=== PATIENT | male | born 1970 | race Caucasian/White ===

== ENCOUNTER 2019-09-06 09:25 | Observation (INO) | payer OTHER, SELFPAY ==
[2019-09-06] VITALS (29 sets, daily range): BP systolic 117–152; BP diastolic 76–106; PULSE 52–74; RESP 13–25; TEMP 36.6–37; O2SAT 97–100; BMI 31.6
--- NOTE | 2019-09-06 | ECHO_ITS ---
Patient Info Name: Jesus Aldridge Age: 49 years : 1970 Gender: Male Ht: 73 in Wt: 239 lbs BSA: 2.39 m2 HR: 61 bpm BP: 125 / 82 mmHg Heart Rhythm: Sinus Rhythm Technical Quality: Good Exam Date: 09/06/2019 4:12 PM Exam Location: [facility] Pulmonary Exam Room: [facility] Patient Status: Inpatient Admit Date: 09/06/2019 Staff Ordering Physician: Sandeep Gonzalez MD Senior Analyst Developer: Nicolette Victoria RDCS Attending Provider: Monica Morton MD Referring Physician: Lisa HERNANDEZ; Exam Type: CA echo doppler color flow Study Info Indications - chest pain Complete two-dimensional, color flow and Doppler transthoracic echocardiogram is performed. Summary 1. Left ventricular chamber dimension is normal. 2. Left ventricular systolic function is normal, estimated at 60-65%. 3. There is mildly increased left ventricular wall thickness. 4. Left ventricular septal wall motion is normal. 5. The left ventricular diastolic function is normal. 6. There is mild mitral valve regurgitation. 7. There is mild tricuspid valve regurgitation. 8. There is mild pulmonic regurgitation. Left Ventricle Left ventricular chamber dimension is normal. Left ventricular systolic function is normal, estimated at 60-65%. There is mildly increased left ventricular wall thickness. Left ventricular septal wall motion is normal. The left ventricular diastolic function is normal. Right Ventricle Right ventricular chamber dimension is normal. Right ventricular systolic function is normal. Left Atria Left atrial chamber dimension is normal. Right Atria Right atrial chamber dimension is normal. Atrial Septum Intact interatrial septum visualized by color flow imaging. Aortic Valve The aortic valve is trileaflet. There is no aortic valve sclerosis. There is no aortic valve stenosis. There is trace aortic valve regurgitation. Pulmonic Valve The pulmonic valve is normal. There is no pulmonic valve stenosis. There is mild pulmonic regurgitation. Mitral Valve The mitral valve has normal leaflets. There is no mitral valve stenosis. There is mild mitral valve regurgitation. Tricuspid Valve The tricuspid valve leaflets are normal. There is no significant tricuspid valve stenosis. There is mild tricuspid valve regurgitation. No pulmonary hypertension, estimated pulmonary arterial systolic pressure is 31 mmHg. Pericardium/Pleural The pericardium appears normal. There is trivial pericardial effusion. Inferior Vena Cava Normal inferior vena cava with <50% collapse upon inspiration consistent with elevated right atrial pressure, 10 mmHg. Aorta The aortic root size at the sinus of Valsalva is normal. The prox ascending aorta size is normal. Left Ventricular Outflow Tract Name Value Normal LVOT 2D LVOT Diameter 2.1 cm LVOT Doppler LVOT Peak Gradient 6 mmHg LVOT Mean Gradient 3 mmHg LVOT VTI 24 cm LVOT VTI/AV VTI Ratio 0.9 LVOT Stroke Volume
--- NOTE | ~2019-09-06 | XR_ITS ---
EXAMINATION: XR chest 2V EXAM DATE: 09/06/2019 10:07 INDICATION: Midline chest pain. TECHNIQUE: Frontal and lateral projections of the chest obtained and reviewed. Comparison is made to prior examination from 01/15/2018. FINDINGS: The lungs are clear. There are no pleural effusions. The cardiomediastinal silhouette is within normal limits. There is no pneumothorax suspected. The bones and soft tissues are unremarkab le. IMPRESSION: No acute cardiopulmonary findings. Reviewed, dictated and finalized at location A.
--- NOTE | 2019-09-06 09:32 | ED.CHESTPAIN ---
HPI - Chest Pain General Chief Complaint: Chest Pain Stated Complaint: Chest Tightness Time Seen by Provider: 09/06/19 09:30 Source: patient Mode of arrival: ambulatory Limitations: no limitations History of Present Illness HPI narrative: A 49 y/o male presents to the ED with c/o CP that is a 5/10 in severity in the ED. Pt states that the CP started yesterday after he finished lifting heavy boxes at work and has been intermittent since. The CP is described as a tightness and is aggravated with deep breaths. He has a PMHx of TN and STENT, but states that this CP feels different. Pt adds that with his previous TN he had right arm numbness and the chest pain was much more severe. He denies any increased pain with movement. Pt reports SOB and nonproductive cough, but denies fever, chills, sweats, jaw pain, back pain, and N/V. He adds that the nonproductive cough started [address] 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 Pt did not take any pain medication prior to his ED visit. MD complaint: chest pain Pertinent past history: prior TN Onset (ago): day(s) (1) Timing of current episode: episodic Onset: during exertion Pain scale (0-10): 5 Quality: tightness Exacerbating factors: inspiration Associated symptoms: dyspnea and cough (Nonproductive) Treatment prior to arrival: none Related Data Home Medications Medication Instructions Recorded Confirmed aspirin 81 mg tablet,delayed 81 mg PO DAILY 07/12/19 release atorvastatin 80 mg tablet 80 mg PO DAILY 07/12/19 clopidogrel 75 mg tablet 75 mg PO DAILY 07/12/19 metoprolol tartrate 25 mg tablet 25 mg PO DAILY 07/12/19 varenicline 1 mg tablet 1 mg PO BID 07/12/19 ezetimibe mg 09/06/19 lisinopril 20 mg PO DAILY 09/06/19 09/06/19 Allergies Allergy/AdvReac Type Severity Reaction Status Date / Time No Known Allergies Allergy Unverified 09/06/19 10:39 Review of Systems Review of Systems: All systems reviewed & are unremarkable except as noted in HPI and below Constitutional: Constitutional: Denies chills and Denies fever(s) Cardiovascular: Cardiovascular: Reports chest pain and Denies other (Sweats) Respiratory: Respiratory: Reports cough (Nonproductive) and Reports dyspnea Gastrointestinal: Gastrointestinal: Denies nausea and Denies vomiting Musculoskeletal: Musculoskeletal: Denies back pain and Denies other (Jaw pain) Neurologic: Denies numbness PMFSH Past Medical History Medical History (Updated 09/06/19 @ 13:59 by Yumi Jones MD) Arthritis Coronary artery disease Heart attack Hyperlipidemia Umbilical hernia Surgical History Surgical History (Updated 09/06/19 @ 09:36 by Juliane Lim) H/O elbow surgery Left History of intravascular stent placement History of tonsillectomy Family History Family History Father Family history of coronary artery disease Grandparent Family history of coronary artery disease Father Acute myocardial infarction Social History Social History (Updated 09/06/19 @ 09:35 by Juliane Lim) Smoking packs per day: 0.5 Smoking cigarettes per day: 10.0 Smoking status: Current every day smoker Tobacco type: cigarettes Alcohol intake: current Gender identity (if verbalized by the patient): Male Exam Const: General: cooperative, no acute distress and alert Nutritional Appearance: obese Orientation/consciousness: patient oriented x3 Limitations: no limitations HENMT: Mouth: Yes lip normal and Yes moist mucous membranes Resp: Effort & Inspection: normal respiratory effort Auscultation: clear to auscultation bilaterally Cardio: Rate: regular rate Rhythm: regular rhythm GI: GI Palp: Yes Soft to palpation and No Tenderness to palpation present (GI) Auscultation: normal bowel sounds Skin: General skin exam: normal color Neuro: General: patient oriented x3 Cognition (Neuro): normal cognition Speech: normal speech Extrem: General: normal to inspectio
--- NOTE | 2019-09-06 09:38 | ECG_ITS ---
Measurements Intervals [place] Rate: 70 P: 49 MN: 164 QRS: 70 QRSD: 93 T: 19 QT: 359 QTc: 388 Interpretive Statements SINUS RHYTHM BASELINE ARTIFACT- I, II, III, AVR, AVL, AVF, V1, V3 BORDERLINE ECG Electronically Signed On 09-06-2019 10:04:06 CDT by Zen Harper D.O.
[2019-09-06 09:46] LABS: Basophils Absolute Auto 0.1 K/mm3 (0.0-0.1); Basophils Percent Auto 0.7 % (0.2-1.2); Eosinophils Absolute Auto 0.1 K/mm3 (0-0.3); Eosinophils Percent Auto 1.9 % (0-4.4); Hemoglobin 14.2 g/dL (14.0-18.0); Immature Granulocyte Absolute 0.01 K/mm3 (0.00-0.031); Immature Granulocyte Percent A 0.1 % (0-0.5); Lymphocytes Absolute Auto 2.22 K/mm3 (0.9-3.2); Lymphocytes Percent Auto 32.7 % (18.3-44.2); Mean Corpuscular HGB Conc 33.8 g/dl (32-36); Mean Corpuscular Hemoglobin 28.5 pg (26-34); Mean Corpuscular Volume 84.2 fl (80-100); Mean Platelet Volume 9.6 fl (7.4-10.4); Monocytes Absolute Auto 0.5 K/mm3 (0.1-0.6); Monocytes Percent Auto 6.6 % (2.6-8.5); Neutrophils Absolute Auto 3.9 K/mm3 (1.3-6.7); Platelet Count Result 229 k/mm3 (150-375); Red Blood Count 4.99 M/mm3 (4.6-6.20); Red Cell Distribution Width 13.2 % (11.5-14.5); White Blood Count 6.8 K/mm3 (4.5-10.0)
[2019-09-06 09:59] LABS: INR 0.9; Prothrombin Time 11.9 Seconds (11.1-14.7)
[2019-09-06 10:00] LABS: Partial Thromboplastin Time 23.9 SECONDS (22.3-36.8)
[2019-09-06 10:03] LABS: D Dimer 0.27 ug/mL (<0.48)
[2019-09-06 10:12] LABS: NT Pro B Type Natriuretic Pept 71 PG/ML (5-100); Troponin I < 0.012 ng/mL (0.000-0.034)
[2019-09-06 10:13] LABS: Alanine Aminotransferase 31 U/L (4-50); Alkaline Phosphatase 67 U/L (38-126); Aspartate Amino Transferase 30 U/L (17-59); Bilirubin,Total 0.5 mg/dL (0.2-1.3); Blood Urea Nitrogen 14 mg/dL (9-20); Calcium 8.9 mg/dL (8.4-10.2); Carbon Dioxide 24 mmol/L (22-30); Chloride 107 mmol/L (98-107); Estimated CRCL calculation 169 ml/min; Estimated Glomerular Filt Rate > 60; Glucose 144 mg/dL (75-110); Sodium 136 mmol/L (137-145)
[2019-09-06] MEDS: NITROGLYCERIN SL 0.4 MG TABLET SUBLINGUAL (10:32)
[2019-09-06] MEDS: ASPIRIN 81 MG CHEWABLE TABLET 324 MG PO (10:32)
--- NOTE | 2019-09-06 10:32 | PC.NURSE ---
Pt given NTG SL for cp 08/28 at present. VSS.
--- NOTE | 2019-09-06 11:59 | PC.NURSE ---
Pt ambulatory to bathroom. Denies return of chest pain
[2019-09-06 13:29] LABS: Troponin I < 0.012 ng/mL (0.000-0.034)
--- NOTE | 2019-09-06 14:06 | PM.IMHP ---
H&P: HPI History of Present Illness Chief complaint: chest pain Narrative: Jesus Aldridge is a 49 year old male who has had a past medical history of having a non STEMI back on January 15, 2018 patient has 1 cardiac stent. 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 He has been doing some heavy lifting the last 24 hours. He typically lifts heavy items but he has been doing on the lifting the last 24 hours biopsy self. He said about 2 days ago he started to have some discomfort but today it got worse. It feels better when he relaxes. He has some chest pain on his upper chest. It hurts worse when he takes deep breaths. He is typically on an aspirin and he has taken all of his routine medication. He sees his call out operator Dr. Reyez annually. And he said he recently got a checkup and everything checked out fine. Patient's pain does not radiate to his arm neck or back. No fever or chills. Troponins are negative and EKG is within normal limits. Cardiology has been consulted. Date of service 09/06/2019 Review of Systems Review of Systems: All systems reviewed & are unremarkable except as noted in HPI and below Constitutional: Constitutional: Reports as per HPI and Reports no additional constitutional complaints Eyes: Eyes: Reports as per HPI and Reports no additional eye complaints ENT: Reports system reviewed and no additional complaints, except as documented and Reports Normal hearing present Cardiovascular: Cardiovascular: Reports no additional cardiovascular complaints Respiratory: Respiratory: Reports no additional respiratory complaints and Reports no additional respiratory complaints Gastrointestinal: Gastrointestinal: Reports as per HPI and Reports no additional gastrointestinal complaints Musculoskeletal: Musculoskeletal: Reports no additional musculoskeletal complaints Integumentary/Breasts: Skin/Breast: Reports system reviewed and no additional complaints, except as docu and Reports as per HPI Neurologic: Reports system reviewed and no additional complaints, except as documented, Reports as per HPI and Reports Normal hearing present Psychiatric: Psychiatric: Reports no additional psychiatric complaints and Reports as per HPI Endocrine: Endocrine: Reports no additional endocrine complaints Hematologic/Lymphatic: Hematologic/Lymphatic: Reports no additional hematologic/lymphatic complaints Allergic/Immunologic: Allergic/Immunologic: Reports no additional allergic/immunologic complaints [facility] Past Medical History Medical History (Updated 09/06/19 @ 14:17 by Dominique Rivera NP) Arthritis Coronary artery disease Heart attack HTN (hypertension), malignant Hyperlipidemia Umbilical hernia Surgical History Surgical History (Updated 09/06/19 @ 09:36 by Juliane Lim) H/O elbow surgery Left History of intravascular stent placement History of tonsillectomy Family History Family History (Updated 09/06/19 @ 14:15 by Dominique Rivera NP) Father Family history of coronary artery disease Grandparent Family history of coronary artery disease Father Acute myocardial infarction Mother Heart disease She has about 7 stents Social History Social History (Updated 09/06/19 @ 14:22 by Dominique Rivera NP) Social History: The patient is to evin who is his durable power contracts attorney for healthcare. Patient tires to be a full code. 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 He is sounds smoking half a pack a cigarettes a day from 2 packs of cigarettes a day. He said he smoked for a very long time and cannot remember how old he was when he started. He denies any alcohol or illicit drugs. He has no biological children. But he has step children. Smoking packs per day: 0.5 Smoking cigarettes per day: 10.0 Smoking status: Current every day smoker Tobacco type: cigarettes Alcohol intake: current Substance use: never Gender identity (if verbalized by the patient):
--- NOTE | 2019-09-06 14:24 | PC.NURSE ---
Attempt to call report to floor, Elsa unable to take at present.
--- NOTE | 2019-09-06 15:13 | ADMGEN ---
This patient, Jesus Aldridge, was admitted to IMU Room 205-01. Patient/family oriented to hospital policies and general routines including ID bracelet, bed and alarms, visiting hours, pain management, procedures, bathroom and other care routines, personal items, smoking policy, room service/diet, and visiting hours. Valuables list has been completed. Information on how to activate the Rapid Response Team has been discussed. Patient/Family are encouraged to report perceived risks to care and to ask questions if they do not understand what they are told or what they should do.
--- NOTE | 2019-09-06 15:46 | PM.CNCAR ---
Assessment and Plan Assessment and plan (1) Chest pain: Code(s): R07.9 - Chest pain, unspecified Status: Acute Assessment and Plan: It is reproducible by palpation. Also likely musculoskeletal. Reportedly did get improvement with nitroglycerin but he also received aspirin around the same time as well as the fact that he has not been breathing heavily since he has been lying in bed since admission. He does not feel like his previous IN pain. Will continue to complete rule out myocardial infarction at this point since he is already on the floor. Will check a 2D echocardiogram with Doppler. Nitroglycerin 0.4 mg p.r.n. chest pain while here in the hospital. I will also give him a dose of acetaminophen 500 mg p.o. x1 now and then q.6 hours p.r.n. Discharge home tomorrow morning (2) Essential hypertension: Code(s): I10 - Essential (primary) hypertension Status: Acute Assessment and Plan: At goal (3) Coronary artery disease: Code(s): I25.10 - Atherosclerotic heart disease of [place] coronary artery without angina pectoris Status: Chronic Assessment and Plan: Previous PCI to the LAD. Continue aspirin, clopidogrel, metoprolol and Zetia. Also continue high-dose statin (4) Hyperlipidemia: Code(s): E78.5 - Hyperlipidemia, unspecified Status: Chronic Assessment and Plan: At goal History of Present Illness History of Present Illness Consult date/time: 09/06/19 15:46 Requesting physician: Yumi Jones MD Consult reason: chest pain Reason For Visit: chest pain Narrative: Date of service 09/06/2019: History: patient is a 49-year-old male who has history coronary disease or non ST-elevation myocardial infarction with a ANIYA to the proximal LAD in 2018. He is a patient Dr. Perera who was recently seen in the office and was thought to be doing well at that time. Cholesterol is well controlled. He is an active man who has been working more [employer] jobs at his place of employment. Yesterday he was lifting heavy objects and as the day went on he developed more chest pain. Chest pain was worsened whenever she would take a big breath in. He described as a pain across his anterior chest without radiation. He did not have any associated shortness of breath, nausea or diaphoresis. It only occurs whenever he took a big breath in. It is not exertional tightness such as with walking around and did not last for several minutes at a time. It did not feel like his previous myocardial infarction pain. He has had no recent syncope, presyncope, paroxysmal nocturnal dyspnea, orthopnea, edema or palpitations. In the emergency department he was given nitroglycerin which did seem to ease the pleuritic aspect of his symptoms but he also has been lying in bed and also received aspirin around the same time. Review of Systems Review of Systems: All systems reviewed & are unremarkable except as noted in HPI and below Constitutional: Constitutional: Denies weakness Eyes: Eyes: Denies blurry vision ENT: Denies tinnitus Cardiovascular: Cardiovascular: Reports chest pain Respiratory: Respiratory: Denies dyspnea Gastrointestinal: Gastrointestinal: Denies abdominal pain Genitourinary: Genitourinary: Denies dysuria Musculoskeletal: Musculoskeletal: Denies back pain Integumentary/Breasts: Skin/Breast: Denies dry skin Neurologic: Denies headache(s) Psychiatric: Psychiatric: Denies anxiety Endocrine: Endocrine: Denies fatigue Hematologic/Lymphatic: Hematologic/Lymphatic: Denies easy bleeding Allergic/Immunologic: Allergic/Immunologic: Denies GI upset with certain foods PMFSH Past Medical History Medical History Arthritis Coronary artery disease Heart attack HTN (hypertension), malignant Hyperlipidemia Umbilical hernia Surgical History Surgical History (Reviewed 09/06/19 @ 15:51 by Sandeep Moody
[2019-09-06 16:25] LABS: Troponin I < 0.012 ng/mL (0.000-0.034)
[2019-09-06] MEDS: VARENICLINE 1 MG TABLET PO (18:00)
[2019-09-06] MEDS: EZETIMIBE 10 MG TABLET PO (22:27)
[2019-09-06] MEDS: ATORVASTATIN 40 MG TABLET 80 MG PO (22:28)
[2019-09-06] MEDS: METOPROLOL TARTRATE 12.5 MG TABLET PO (22:28)
[2019-09-07] VITALS (7 sets, daily range): BP systolic 116–123; BP diastolic 67–80; PULSE 55–79; RESP 18; TEMP 36.2–36.4; O2SAT 98–99
[2019-09-07 05:16] LABS: Basophils Absolute Auto 0.1 K/mm3 (0.0-0.1); Basophils Percent Auto 0.6 % (0.2-1.2); Eosinophils Absolute Auto 0.1 K/mm3 (0-0.3); Eosinophils Percent Auto 1.6 % (0-4.4); Hemoglobin 14.3 g/dL (14.0-18.0); Immature Granulocyte Absolute 0.02 K/mm3 (0.00-0.031); Immature Granulocyte Percent A 0.2 % (0-0.5); Lymphocytes Absolute Auto 2.71 K/mm3 (0.9-3.2); Mean Corpuscular Hemoglobin 28.7 pg (26-34); Mean Corpuscular Volume 84.2 fl (80-100); Mean Platelet Volume 9.8 fl (7.4-10.4); Monocytes Absolute Auto 0.6 K/mm3 (0.1-0.6); Monocytes Percent Auto 6.7 % (2.6-8.5); Neutrophils Absolute Auto 4.8 K/mm3 (1.3-6.7); Neutrophils Percent Auto 57.9 % (45.5-73.1); Platelet Count Result 237 k/mm3 (150-375); Red Blood Count 4.99 M/mm3 (4.6-6.20); Red Cell Distribution Width 13.2 % (11.5-14.5); White Blood Count 8.2 K/mm3 (4.5-10.0)
[2019-09-07 05:26] LABS: Alanine Aminotransferase 29 U/L (4-50); Albumin Level 3.7 g/dL (3.5-5.1); Alkaline Phosphatase 81 U/L (38-126); Aspartate Amino Transferase 22 U/L (17-59); Bilirubin,Total 0.4 mg/dL (0.2-1.3); Blood Urea Nitrogen 9 mg/dL (9-20); Calcium 8.6 mg/dL (8.4-10.2); Carbon Dioxide 25 mmol/L (22-30); Chloride 105 mmol/L (98-107); Estimated CRCL calculation 144 ml/min; Estimated Glomerular Filt Rate > 60; Glucose 100 mg/dL (75-110); Magnesium 1.9 mg/dL (1.6-2.3); Potassium 3.6 mmol/L (3.4-5.0); Sodium 138 mmol/L (137-145)
[2019-09-07] MEDS: lisinopriL 20 MG TABLET PO (09:37)
[2019-09-07] MEDS: ASPIRIN 81 MG ENTERIC TABLET PO (09:37)
[2019-09-07] MEDS: CLOPIDOGREL BISULFATE 75 MG TABLET PO (09:38)
[2019-09-07] MEDS: VARENICLINE 1 MG TABLET PO (09:38)
[2019-09-07] MEDS: METOPROLOL TARTRATE 12.5 MG TABLET PO (09:38)
--- NOTE | 2019-09-07 10:04 | PM.PNCARD ---
Progress Note: A&P Assessment and Plan (1) Chest pain: Qualifiers: Chest pain type: other chest pain Qualified Code(s): R07.89 - Other chest pain Code(s): R07.9 - Chest pain, unspecified Status: Acute Assessment and Plan: Pain is improved. Still reproducible on palpation to the chest wall. Discussed the type of work that he does and how much lifting he was required to do. Will limit him lifting by himself at 30 lb. Return to work on Wednesday, September 11, 2019. ECHO 09/06/2019: 1. Left ventricular chamber dimension is normal. 2. Left ventricular systolic function is normal, estimated at 60-65%. 3. There is mildly increased left ventricular wall thickness. 4. Left ventricular septal wall motion is normal. 5. The left ventricular diastolic function is normal. 6. There is mild mitral valve regurgitation. 7. There is mild tricuspid valve regurgitation. 8. There is mild pulmonic regurgitation. (2) Essential hypertension: Code(s): I10 - Essential (primary) hypertension Status: Acute Assessment and Plan: At goal (3) Coronary artery disease: Qualifiers: Coronary Disease-Associated Artery/Lesion type: [place] artery [place] vs. transplanted heart: [place] heart Associated angina: without angina Qualified Code(s): I25.10 - Atherosclerotic heart disease of [place] coronary artery without angina pectoris Code(s): I25.10 - Atherosclerotic heart disease of [place] coronary artery without angina pectoris Status: Chronic Assessment and Plan: Previous PCI to the LAD. Continue aspirin, clopidogrel, metoprolol and Zetia. Also continue high-dose statin (4) Hyperlipidemia: Qualifiers: Hyperlipidemia type: mixed hyperlipidemia Qualified Code(s): E78.2 - Mixed hyperlipidemia Code(s): E78.5 - Hyperlipidemia, unspecified Status: Chronic Assessment and Plan: At goal Additional Plan Smoking cessation again discussed. He is down to 1/2 pack per day. OK to discharge from cardiac standpoint See discharge instructions. Plan discussed with Dr. Gonzalez [id number] 09/07/2019 Time Spent With Patient Time with patient: less than 15 minutes Subjective Date/time seen: 09/07/19 10:04 Interval history: Follow-up for: Chest pain, coronary artery disease, tobacco use Date of service: 09/07/2019 Subjective: Pain is much better. Still hurts when takes deep breath. Pain is unlike his and might discomfort. Denied shortness of breath, lightheadedness or palpitations. Review of Systems Constitutional: Constitutional: Denies fatigue and Denies weakness Eyes: Eyes: Denies blurry vision ENT: Denies epistaxis Cardiovascular: Cardiovascular: Reports chest pain (Musculoskeletal), Denies lightheadedness, Denies palpitations and Denies dyspnea Respiratory: Respiratory: Denies dyspnea Gastrointestinal: Gastrointestinal: Denies abdominal pain Genitourinary: Genitourinary: Denies hematuria Integumentary/Breasts: Skin/Breast: Denies unusual bruising Neurologic: Denies headache(s) and Denies numbness Psychiatric: Psychiatric: Denies anxiety Exam Narrative: Exam Narrative: Alert and oriented Const: General: comfortable HENMT: General nose exam: nares abnormal Eyes: Sclera: sclerae normal Neck: Neck: normal visual inspection and no JVD Chest: Other: Reproducible chest wall pain to palpation Resp: Auscultation: clear to auscultation bilaterally Cardio: Jugular venous distension: no JVD Rate: regular rate Rhythm: regular rhythm Heart sounds: no murmurs Peripheral pulses: Peripheral pulses 2+ throughout GI: Inspection: normal to inspection GI Palp: Yes Soft to palpation Auscultation: normal bowel sounds Skin: General skin exam: normal color Neuro: Speech: normal speech Motor exam (neuro): Normal motor muscle tone present throug
--- NOTE | 2019-09-07 11:19 | PM.IMPN ---
Progress Note: A&P Assessment and Plan (1) Chest pain: Qualifiers: Chest pain type: other chest pain Qualified Code(s): R07.89 - Other chest pain Code(s): R07.9 - Chest pain, unspecified Status: Acute Assessment and Plan: Cardiology consulted and appreciate input. Does appear to be musculoskeletal at this time. Echocardiogram with EF 60-65%. Serial troponin levels negative. No EKG changes. Telemetry reviewed on 09/07/2019 with sinus rhythm. Will discharge home today. (2) Hypertension: Qualifiers: Hypertension type: essential hypertension Qualified Code(s): I10 - Essential (primary) hypertension Code(s): I10 - Essential (primary) hypertension Status: Acute Assessment and Plan: Blood pressure reviewed on 09/07/2019 and stable. Continue metoprolol and lisinopril. (3) Coronary artery disease: Qualifiers: Coronary Disease-Associated Artery/Lesion type: [place] artery [place] vs. transplanted heart: [place] heart Associated angina: without angina Qualified Code(s): I25.10 - Atherosclerotic heart disease of [place] coronary artery without angina pectoris Code(s): I25.10 - Atherosclerotic heart disease of [place] coronary artery without angina pectoris Status: Chronic Assessment and Plan: No acute issue. Continue ASA, Plavix and metoprolol. (4) Hyperlipidemia: Qualifiers: Hyperlipidemia type: mixed hyperlipidemia Qualified Code(s): E78.2 - Mixed hyperlipidemia Code(s): E78.5 - Hyperlipidemia, unspecified Status: Chronic Assessment and Plan: Continue Zetia and atorvastatin. (5) DVT prophylaxis: Code(s): Z29.9 - Encounter for prophylactic measures, unspecified Status: Acute Assessment and Plan: SCDs. Time Spent With Patient Time with patient: 15 - 25 minutes Subjective Date/time seen: 09/07/19 11:19 Interval history: Date of Service: 09/07/2019. Admitted with atypical chest pain. Occasional pain in chest but improved. No shortness of breath. No abdominal pain. No headache or dizziness. Review of Systems Review of Systems: Narrative: Feeling better. Constitutional: Constitutional: Denies chills and Denies fever(s) ENT: Denies nasal congestion and Denies nasal discharge Cardiovascular: Cardiovascular: Denies chest pain Respiratory: Respiratory: Denies dyspnea Gastrointestinal: Gastrointestinal: Denies abdominal pain, Denies nausea and Denies vomiting Musculoskeletal: Comments: chest wall pain Integumentary/Breasts: Skin/Breast: Denies rash Neurologic: Denies headache(s) Psychiatric: Psychiatric: Denies anxiety and Denies depression Exam Narrative: Exam Narrative: Awake and alert. Const: General: no acute distress HENMT: Mouth: Yes moist mucous membranes Neck: Neck: supple Thyroid: abnormal thyroid Resp: Auscultation: clear to auscultation bilaterally, no rales and no wheezes Cardio: Rate: regular rate Rhythm: regular rhythm GI: Inspection: non-distended GI Palp: Yes Soft to palpation and No Tenderness to palpation present (GI) Auscultation: normal bowel sounds Skin: General skin exam: no rashes or lesions noted Neuro: Cognition (Neuro): normal cognition Speech: normal speech Extrem: General: no edema Psych: Mental Status: mental status grossly normal Affect: normal affect Objective Data Vital Signs Vital Signs: Vital Signs - 24 hr 09/06/19 11:38 09/06/19 11:46 09/06/19 11:47 Temperature Pulse Rate 62 59 L Respiratory Rate 19 20 19 Blood Pressure 146/106 H Pulse Oximetry 98 99 98 09/06/19 12:00 09/06/19 12:01 09/06/19 12:15 Temperature Pulse Rate 60 58 L 69 Respiratory Rate 25 H 19 22 H Blood Pressure 126/77 121/77 Pulse Oximetry 99 98 100 09/06/19 12:16 09/06/19 12:45 09/06/19 13:00 Temperature Pulse Rate 67 65 64 Respiratory Rate 20 15 15 Blood Pressure 128/105 H Pulse Oximetry 99 99 100
--- NOTE | 2019-09-07 11:24 | PM.DS ---
DS: Diagnosis Admitting Diagnosis Admitting Diagnosis: Chest pain, unspecified Discharge Diagnosis (1) Chest pain: Qualifiers: Chest pain type: other chest pain Qualified Code(s): R07.89 - Other chest pain Code(s): R07.9 - Chest pain, unspecified Status: Acute (2) Hypertension: Qualifiers: Hypertension type: essential hypertension Qualified Code(s): I10 - Essential (primary) hypertension Code(s): I10 - Essential (primary) hypertension Status: Acute (3) Coronary artery disease: Qualifiers: Associated angina: without angina Coronary Disease-Associated Artery/Lesion type: [place] artery [place] vs. transplanted heart: [place] heart Qualified Code(s): I25.10 - Atherosclerotic heart disease of [place] coronary artery without angina pectoris Code(s): I25.10 - Atherosclerotic heart disease of [place] coronary artery without angina pectoris Status: Chronic (4) Hyperlipidemia: Qualifiers: Hyperlipidemia type: mixed hyperlipidemia Qualified Code(s): E78.2 - Mixed hyperlipidemia Code(s): E78.5 - Hyperlipidemia, unspecified Status: Chronic DS: Summary Hospital Course Reason for hospitalization: Chest pain. Hospital Course: Date of Service of Discharge: September 07, 2019. History of Present Illness: Patient is a 49-year-old gentleman with known history of coronary artery disease with stent placement in 2018 to present to the emergency room with pain in the upper chest. 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 He has been doing heavy lifting in the past 24 hours. Patient reports approximately 2 days earlier be and have some discomfort but on the day of presentation pain was worse. Pain is worse when taking a deep breath. He is typically on aspirin and is taking all of his cardiac medications. He does see his financial brokers, Dr. Reyez, annually and was seen recently with no issues noted. No radiation of pain. No shortness of breath. No diaphoresis.. No fever chills. Initial evaluation in the emergency room with negative troponin and EKG normal. Cardiology was consulted with patient placed in observation for further evaluation and treatment. Course in Hospital: Patient was admitted to the IMU where he remained for the duration of his stay. He was seen in consultation by Cardiology. Serial troponin levels were negative x3. No acute changes on EKG. Telemetry was normal. He was continued on all of his home cardiac medications. An echocardiogram was done EF 60-65% and no septal wall motion abnormalities. Patient's blood pressure remained stable during his stay. No chest pressure. No shortness of breath. No other acute issues. With acute coronary issues ruled out, patient was discharged home in stable condition on September 07, 2019. Status at Discharge Cognitive/behavioral status at discharge: Stable. Functional status at discharge: independent ambulation Overall status at discharge: patient is back to baseline Time Spent with Patient Time attestation: Total time spent providing and/or coordinating discharge services: 35 minutes. Exam Narrative: Exam Narrative: Vital Signs Temp Pulse Resp BP Pulse Ox 98.6 F 74 17 152/89 H 100 09/06/19 09:31 09/06/19 09:31 09/06/19 09:31 09/06/19 09:31 09/06/19 09:31 Temp Pulse Resp BP Pulse Ox 97.3 F L 64 18 116/69 98 09/07/19 08:00 09/07/19 09:51 09/07/19 08:00 09/07/19 08:00 09/07/19 08:00 Awake and alert. Const: General: no acute distress HENMT: Mouth: Yes moist mucous membranes Neck: Neck: supple Thyroid: abnormal thyroid Resp: Auscultation: clear to auscultation bilaterally, n
== END 2019-09-07 11:52 | disposition home or self-care (01) ==
LOC: ANHED 13:59 → ANHIMU 14:05
PROVIDERS: Nurse Practitioner; Admitting Provider Hospitalist; Emergency Provider Emergency Medicine; Visit Provider Hospitalist
DX: R07.89 Other chest pain (principal); I10 Essential (primary) hypertension; I25.10 Atherosclerotic heart disease of native coronary artery without angina pectoris; E78.5 Hyperlipidemia, unspecified; I25.2 Old myocardial infarction; R06.02 Shortness of breath; F17.210 Nicotine dependence, cigarettes, uncomplicated; Z79.82 Long term (current) use of aspirin; Z79.899 Other long term (current) drug therapy; Z95.5 Presence of coronary angioplasty implant and graft
CPT/HCPCS: 36415; 71046; 80053; 83735; 83880; 84443; 84484; 85025; 85380; 85610; 85730; 93005; 93306; 99285; A9270; G0378; G0379

== ENCOUNTER 2019-10-23 17:07 | Emergency (ER) | payer OTHER, SELFPAY ==
[2019-10-23 17:12] VITALS: BP 139/86; PULSE 83; RESP 20; TEMP 37.2; O2SAT 99
--- NOTE | 2019-10-23 17:39 | ED.NAVMDI ---
HPI - Nausea/Vomiting/Diarrhea General Chief complaint: Nausea/Vomiting/Diarrhea Stated complaint: food poisoning / nausea Time Seen by Provider: 10/23/19 17:39 Source: patient Mode of arrival: ambulatory Limitations: no limitations History of Present Illness HPI Narrative: Jesus Aldridge is a 49 yo male with PMH ulnar nerve issue, CAD, hypertension, high cholesterol, chronic anticoagulation, GERD, who comes to express care after vomiting after eating very spicy food. States he was unable to go to work due to nausea Related Data Home Medications Medication Instructions Recorded Confirmed aspirin 81 mg tablet,delayed 81 mg PO DAILY 07/12/19 10/23/19 release atorvastatin 80 mg tablet 80 mg PO DAILY 07/12/19 10/23/19 clopidogrel 75 mg tablet 75 mg PO DAILY 07/12/19 10/23/19 metoprolol tartrate 25 mg tablet 12.5 mg PO BID 07/12/19 10/23/19 varenicline 1 mg tablet 1 mg PO BID 07/12/19 10/23/19 ezetimibe 10 mg PO QAM 09/06/19 10/23/19 lisinopril 20 mg PO DAILY 09/06/19 10/23/19 Allergies Allergy/AdvReac Type Severity Reaction Status Date / Time No Known Allergies Allergy Verified 10/23/19 17:37 Review of Systems Review of Systems: Narrative: CONSTITUTIONAL: Denies fever, chills, sweats. EYES: Denies visual changes, redness, discharge. ENT: Denies rhinorrhea, congestion, sore throat, otalgia. CARDIOVASCULAR: Denies chest pain, palpitations, edema. RESPIRATORY: Denies dyspnea, wheezing, cough GASTROINTESTINAL: Denies abdominal pain, has nausea, vomiting x1 , diarrhea. GENITOURINARY: Denies dysuria, hematuria, abnormal discharge SKIN: Denies rash or itching. NEUROLOGIC: Denies numbness, or focal weakness. PSYCHIATRIC: Denies anxiety or depression. [facility] Past Medical History Medical History Arthritis Coronary artery disease Heart attack HTN (hypertension), malignant Hyperlipidemia Umbilical hernia Surgical History Surgical History H/O elbow surgery Left History of intravascular stent placement History of tonsillectomy Family History Family History Father Family history of coronary artery disease Grandparent Family history of coronary artery disease Father Acute myocardial infarction Mother Heart disease She has about 7 stents Social History Social History Social History: The patient is to evin who is his durable power transactional attorney for healthcare. Patient tires to be a full code. 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 He is sounds smoking half a pack a cigarettes a day from 2 packs of cigarettes a day. He said he smoked for a very long time and cannot remember how old he was when he started. He denies any alcohol or illicit drugs. He has no biological children. But he has step children. Smoking packs per day: 0.5 Smoking cigarettes per day: 10.0 Years smoked: 32 Smoking pack-years: 16.00 Smoking status: Current every day smoker Tobacco type: cigarettes Additional smoking assessment comments: smoked 2 packs a day for 25 years. Alcohol intake: former Drinks per week: 10 Substance use: never Gender identity (if verbalized by the patient): Male Spiritual care concerns: No Agree to blood products: No Comments At time of signature, I agree with nursing past medical, surgical, social and family history. There is no relevant family history pertinent to the presenting complaint. Exam Narrative: Exam Narrative: GENERAL: This is a well-nourished, well-developed patient, in mild distress. HEAD: normocephalic, atraumatic. EYES:Sclera clear/white. Vision is grossly intact. EARS: External ears normal, auditory canals clear and without drainage, TMs normal without perforation. Hearing grossly intact. NOSE: External nose n
== END 2019-10-23 17:54 | disposition home or self-care (01) ==
PROVIDERS: Emergency Provider Nurse Practitioner; PCP Internal Medicine
DX: I25.10 Atherosclerotic heart disease of native coronary artery without angina pectoris (principal); R11.14 Bilious vomiting; K21.9 Gastro-esophageal reflux disease without esophagitis; Z79.82 Long term (current) use of aspirin; M19.90 Unspecified osteoarthritis, unspecified site; I25.2 Old myocardial infarction; I10 Essential (primary) hypertension; E78.5 Hyperlipidemia, unspecified; F17.210 Nicotine dependence, cigarettes, uncomplicated; K52.9 Noninfective gastroenteritis and colitis, unspecified
CPT/HCPCS: 99213; G0463

== ENCOUNTER 2020-02-12 05:22 | Emergency (ER) | payer OTHER, SELFPAY ==
--- NOTE | ~2020-02-12 | US_ITS ---
EXAMINATION: US right upper quadrant DATE: 02/12/2020 07:50 INDICATION: Right upper quadrant abdominal pain. TECHNIQUE: Multiple grayscale and Doppler ultrasound images of the abdomen were obtained. COMPARISON: CT abdomen and pelvis 04/11/2019 FINDINGS: The visualized portions of the head, body, and tail of the pancreas are normal. There is di ffuse hepatic steatosis. There is normal flow in main portal vein. The gallbladder is distended and c ontains gallstones. Gallbladder wall thickening is noted. No sonographic Dove sign. The common duct is normal and measures 4 mm. IMPRESSION: 1. Distended gallbladder with gallstones and gallbladder wall thickening, but no sonographic Dove s ign. These findings are consistent with acute cholecystitis. 2. Diffuse hepatic steatosis. Reviewed, dictated and finalized at location B. IMPRESSION: 1. Distended gallbladder with gallstones and gallbladder wall thickening, but n o sonographic Dove sign. These findings are consistent with acute cholecystit is. 2. Diffuse hepatic steatosis.
[2020-02-12 05:22] VITALS: BP 164/89; PULSE 69; RESP 18; TEMP 36.3; O2SAT 97
[2020-02-12 05:43] LABS: Basophils Absolute Auto 0.1 K/mm3 (0.0-0.1); Basophils Percent Auto 0.6 % (0.2-1.2); Eosinophils Absolute Auto 0.1 K/mm3 (0-0.3); Eosinophils Percent Auto 1.3 % (0-4.4); Hematocrit 41.1 % (42.0-52.0); Hemoglobin 14.3 g/dL (14.0-18.0); Immature Granulocyte Absolute 0.03 K/mm3 (0.00-0.031); Immature Granulocyte Percent A 0.4 % (0-0.5); Lymphocytes Percent Auto 31.8 % (18.3-44.2); Mean Corpuscular HGB Conc 34.8 g/dl (32-36); Mean Corpuscular Hemoglobin 29.2 pg (26-34); Mean Corpuscular Volume 83.9 fl (80-100); Mean Platelet Volume 9.3 fl (7.4-10.4); Monocytes Absolute Auto 0.6 K/mm3 (0.1-0.6); Monocytes Percent Auto 8.2 % (2.6-8.5); Neutrophils Absolute Auto 4.5 K/mm3 (1.3-6.7); Neutrophils Percent Auto 57.7 % (45.5-73.1); Platelet Count Result 240 k/mm3 (150-375); Red Cell Distribution Width 12.9 % (11.5-14.5); White Blood Count 7.9 K/mm3 (4.5-10.0)
[2020-02-12 05:55] LABS: Alanine Aminotransferase 54 U/L (4-50); Albumin Level 4.2 g/dL (3.5-5.1); Alkaline Phosphatase 86 U/L (38-126); Anion Gap 8 mmol/L (8-16); Aspartate Amino Transferase 27 U/L (17-59); Bilirubin,Total 0.3 mg/dL (0.2-1.3); Blood Urea Nitrogen 15 mg/dL (9-20); Calcium 8.6 mg/dL (8.4-10.2); Carbon Dioxide 24 mmol/L (22-30); Chloride 104 mmol/L (98-107); Estimated CRCL calculation 129 ml/min; Estimated Glomerular Filt Rate > 60; Glucose 154 mg/dL (75-110); Lipase 477 U/L (23-300); Potassium 3.8 mmol/L (3.4-5.0); Sodium 136 mmol/L (137-145)
[2020-02-12 06:01] LABS: Add Urine Microscopic? NO; Appearance Urine Clear (Clear); Bilirubin Urine Negative (Negative); Blood Urine Negative (Negative); Color Urine Yellow (Yellow); Glucose Urine UA Negative (Negative); Ketones Urine Negative (Negative); Leukocyte Esterase Ur Negative LEU/UL (Negative); Nitrate Urine Negative (Negative); Protein Urine Negative (Negative); Specific Grav Ur 1.024 (1.001-1.035); Urobilinogen Urine Negative mg/dL (<2.0)
--- NOTE | 2020-02-12 06:10 | ED.ABDPAIN ---
HPI - Abdominal Pain General Chief Complaint: Abdominal Pain <Nacho Wetzel MD - Last Filed: 02/12/20 06:14> Stated Complaint: abd pain <Nacho Wetzel MD - Last Filed: 02/12/20 06:14> Time Seen by Provider: 02/12/20 05:31 <Nacho Wetzel MD - Last Filed: 02/12/20 06:14> History of Present Illness HPI narrative: Patient is a 49-year-old male who presents the ER with abdominal pain. Began earlier in the evening. Mainly located in the right upper quadrant of the abdomen. Patient reports she has history of cholelithiasis. No fevers or chills or sweats. He does have some nausea and vomiting. Became sweaty earlier prior to arrival. No alleviating factors is found. He reports he has had this pain intermittently in the past after eating. Reports if he rubs his belly the pain will go away but did not help today. <Nacho Wetzel MD - Last Filed: 02/12/20 06:14> Related Data Home Medications: Home Medications Medication Instructions Recorded Confirmed aspirin 81 mg tablet,delayed 81 mg PO DAILY 07/12/19 10/23/19 release atorvastatin 80 mg tablet 80 mg PO DAILY 07/12/19 10/23/19 clopidogrel 75 mg tablet 75 mg PO DAILY 07/12/19 10/23/19 metoprolol tartrate 25 mg tablet 12.5 mg PO BID 07/12/19 10/23/19 lisinopril 10 mg PO DAILY 09/06/19 10/23/19 <Nacho Wetzel MD - Last Filed: 02/12/20 06:14> Allergies/Adverse Reactions: Allergies Allergy/AdvReac Type Severity Reaction Status Date / Time No Known Allergies Allergy Verified 02/12/20 05:26 <Nacho Wetzel MD - Last Filed: 02/12/20 06:14> Review of Systems Review of Systems: All systems reviewed & are unremarkable except as noted in HPI and below <Nacho Wetzel MD - Last Filed: 02/12/20 06:14> Constitutional: Constitutional: Denies chills, Denies fever(s) and Denies weakness <Nacho Wetzel MD - Last Filed: 02/12/20 06:14> ENT: Denies nasal congestion and Denies sore throat <Nacho Wetzel MD - Last Filed: 02/12/20 06:14> Cardiovascular: Cardiovascular: Denies chest pain and Denies radiating jaw, neck or arm pain <Nacho Wetzel MD - Last Filed: 02/12/20 06:14> Gastrointestinal: Gastrointestinal: Reports abdominal pain, Denies diarrhea, Reports nausea and Reports vomiting <Nacho Wetzel MD - Last Filed: 02/12/20 06:14> [facility] Past Medical History Medical History: Medical History (Updated 02/12/20 @ 09:46 by Pantera Ramsey MD) Arthritis Cholelithiasis Coronary artery disease Heart attack HTN (hypertension), malignant Hyperlipidemia Umbilical hernia <Nacho Wetzel MD - Last Filed: 02/12/20 06:14> Surgical History Surgical History: Surgical History H/O elbow surgery Left History of intravascular stent placement History of tonsillectomy <Nacho Wetzel MD - Last Filed: 02/12/20 06:14> Social History Social History: Social History Social History: The patient is to evin who is his durable power admitted attorneys for healthcare. Patient tires to be a full code. 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 He is sounds smoking half a pack a cigarettes a day from 2 packs of cigarettes a day. He said he smoked for a very long time and cannot remember how old he was when he started. He denies any alcohol or illicit drugs. He has no biological children. But he has step children. Smoking packs per day: 0.5 Smoking cigarettes per day: 10.0 Years smoked: 32 Smoking pack-years: 16.00 Smoking status: Current every day smoker Tobacco type: cigarettes Additional smoking assessment comments: smoked 2 packs a day for 25 years. Alcohol intake: former Drinks per week: 10 Substance use: never Gender identity (if verbalized by the patient): Male Spiritual care concerns: No Agree to blood products: No
[2020-02-12] MEDS: MORPHINE SULFATE 4 MG/ML INJ IV PUSH (06:18)
[2020-02-12 07:11] VITALS: BP 148/92; PULSE 70; RESP 18; O2SAT 96
[2020-02-12] MEDS: ONDANSETRON INJ 4 MG/2 ML VIAL IV PUSH (07:49)
[2020-02-12 10:15] VITALS: BP 141/56; PULSE 70; RESP 12; O2SAT 99
== END 2020-02-12 10:15 | disposition home or self-care (01) ==
PROVIDERS: Emergency Provider Emergency Medicine
DX: K81.0 Acute cholecystitis (principal); M19.90 Unspecified osteoarthritis, unspecified site; I25.10 Atherosclerotic heart disease of native coronary artery without angina pectoris; I25.2 Old myocardial infarction; I10 Essential (primary) hypertension; E78.5 Hyperlipidemia, unspecified; F17.210 Nicotine dependence, cigarettes, uncomplicated; K76.0 Fatty (change of) liver, not elsewhere classified
CPT/HCPCS: 36415; 76705; 80053; 81003; 83690; 85025; 96374; 96375; 99284; J2270; J2405

== ENCOUNTER 2020-03-06 17:10 | Emergency (ER) | payer OTHER, SELFPAY ==
--- NOTE | ~2020-03-06 | XR_ITS ---
EXAMINATION: XR wrist RT min 3V DATE: 03/06/2020 17:29 INDICATION: Right wrist injury and pain. TECHNIQUE: 4 views of right wrist were obtained. COMPARISON: None. FINDINGS: Bone alignment is normal. No fracture. There is a 4 mm lytic lesion in scaphoid, likely a b enign fibrous lesion. There is narrowing of scapholunate joint, which may be a fibrous or [place]il[place] us coalition. IMPRESSION: 1. No fracture. Reviewed, dictated and finalized at location A. IMPRESSION: 1. No fracture.
--- NOTE | 2020-03-06 17:11 | ED.GENADULT ---
HPI - General Adult General Chief complaint: Extremity Injury, Upper Stated complaint: right wrist injury Time Seen by Provider: 03/06/20 17:11 Source: patient Mode of arrival: ambulatory Limitations: no limitations History of Present Illness HPI narrative: 49-year-old male patient presents to [facility] care with complaints of right wrist pain. Patient states that he tripped and fell down about 5 steps off of his porch around noon today. Patient states that he landed on concrete. Patient complaining of right wrist pain at this time. Patient states he has broken his right wrist before when he was younger. Patient states he does not have any numbness and tingling at this time. Denies taking anything for pain prior to arrival. Related Data Home Medications Medication Instructions Recorded Confirmed aspirin 81 mg tablet,delayed 81 mg PO DAILY 07/12/19 03/06/20 release atorvastatin 80 mg tablet 80 mg PO DAILY 07/12/19 03/06/20 clopidogrel 75 mg tablet 75 mg PO DAILY 07/12/19 03/06/20 metoprolol tartrate 25 mg tablet 12.5 mg PO BID 07/12/19 03/06/20 lisinopril 10 mg PO DAILY 09/06/19 03/06/20 Allergies Allergy/AdvReac Type Severity Reaction Status Date / Time No Known Allergies Allergy Verified 03/06/20 17:25 Review of Systems Review of Systems: Narrative: CONSTITUTIONAL: Denies fever, chills, or sweats. EYES: Denies visual changes, redness, or discharge. ENT: Denies rhinorrhea, congestion, sore throat, or otalgia. CARDIOVASCULAR: Denies chest pain, palpitations, or edema. RESPIRATORY: Denies cough or dyspnea. GASTROINTESTINAL: Denies abdominal pain, nausea, vomiting, or diarrhea. GENITOURINARY: Denies dysuria or hematuria. SKIN: Denies rash or itching. MUSCULOSKELETAL: Denies back pain, joint pain, or myalgia. Positive right wrist and hand pain NEUROLOGIC: Denies headache, numbness, or weakness. PSYCHIATRIC: Denies anxiety or depression. [facility] Past Medical History Medical History Arthritis Cholelithiasis Coronary artery disease Heart attack HTN (hypertension), malignant Hyperlipidemia Umbilical hernia Surgical History Surgical History H/O elbow surgery Left History of intravascular stent placement History of tonsillectomy Family History Family History Father Family history of coronary artery disease Grandparent Family history of coronary artery disease Father Acute myocardial infarction Mother Heart disease She has about 7 stents Social History Social History Social History: The patient is to evin who is his durable power tour production supervisor for healthcare. Patient tires to be a full code. 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 He is sounds smoking half a pack a cigarettes a day from 2 packs of cigarettes a day. He said he smoked for a very long time and cannot remember how old he was when he started. He denies any alcohol or illicit drugs. He has no biological children. But he has step children. Smoking packs per day: 0.5 Smoking cigarettes per day: 10.0 Years smoked: 32 Smoking pack-years: 16.00 Smoking status: Current every day smoker Tobacco type: cigarettes Additional smoking assessment comments: smoked 2 packs a day for 25 years. 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 HEAD: Normocephalic, atraumatic. EYES: PERRLA and EOMI. ENT: Nares clear, no rhinorrhea or epistaxis. Mucous membranes moist. NECK: Supple. No lymphadenop
[2020-03-06 17:15] VITALS: BP 150/80; PULSE 85; RESP 16; TEMP 36.9; O2SAT 99
== END 2020-03-06 17:51 | disposition home or self-care (01) ==
PROVIDERS: Emergency Provider Nurse Practitioner Family
DX: S63.501A Unspecified sprain of right wrist, initial encounter (principal); W10.9XXA Fall (on) (from) unspecified stairs and steps, initial encounter; F17.210 Nicotine dependence, cigarettes, uncomplicated; M19.90 Unspecified osteoarthritis, unspecified site; I25.10 Atherosclerotic heart disease of native coronary artery without angina pectoris; I25.2 Old myocardial infarction; I10 Essential (primary) hypertension; E78.5 Hyperlipidemia, unspecified; Z79.82 Long term (current) use of aspirin
CPT/HCPCS: 73110; 99213; G0463

== ENCOUNTER 2020-08-05 16:16 | Emergency (ER) | payer OTHER, SELFPAY ==
--- NOTE | ~2020-08-05 | XR_ITS ---
EXAMINATION: XR knee RT min 4V EXAM DATE: 08/05/2020 16:47 INDICATION: Fell forward on 08/05/2020. Anterior knee pain and swelling. TECHNIQUE: Right knee frontal, crosstable lateral, orthogonal oblique projections for interpretation . There is no prior study for comparison. FINDINGS: There is a large amount of swelling anterior to the right patella. 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 The re is no joint effusion or evidence of hemarthrosis, but difficult to exclude injury to the patella. Femur, tibia and fibula are unremarkable. 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 No evidence of joint effusion. Consider follow-up MR or CT. Reviewed, dictated and finalized at location G. 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 No evide nce of joint effusion. Consider follow-up MR or CT.
[2020-08-05 16:25] VITALS: BP 112/78; PULSE 91; RESP 18; TEMP 37.2; TEMP 37.7; O2SAT 100
--- NOTE | 2020-08-05 16:28 | ED.LOWEXIN ---
HPI - Extremity Injury (Lower) General Chief Complaint: Extremity Injury, Lower Stated Complaint: right knee injury Time Seen by Provider: 08/05/20 16:32 Source: patient and RN notes reviewed Mode of arrival: ambulatory Limitations: no limitations History of Present Illness HPI Narrative: 50year old male who presents to express care with complaints of pain and swelling to his right knee after falling onto his right knee and hitting it on tree root at about 1530 today. 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 Patient has notable swelling to anterior aspect of his patella with point tenderness along lateral region of knee cap. Patient denies any tingling or numbness to his right leg or foot, palpable pulses to his right foot. MD complaint: knee injury Onset (ago): hour(s) (1530 today) Injury: Right: knee Type of Injury: blunt (fell directly onto patella) Place: work and street/outdoors Severity: moderate Severity scale (1-10): 6 Relieving factors: rest Exacerbating factors: movement Context: fall Associated symptoms: swelling and able to partially bear weight Other symptoms: none Treatments prior to arrival: cold therapy Related Data Home Medications Medication Instructions Recorded Confirmed aspirin 81 mg tablet,delayed 81 mg PO DAILY 07/12/19 08/05/20 release atorvastatin 80 mg tablet 80 mg PO DAILY 07/12/19 08/05/20 clopidogrel 75 mg tablet 75 mg PO DAILY 07/12/19 08/05/20 metoprolol tartrate 25 mg tablet 12.5 mg PO BID 07/12/19 08/05/20 lisinopril 10 mg PO DAILY 09/06/19 08/05/20 Allergies Allergy/AdvReac Type Severity Reaction Status Date / Time No Known Allergies Allergy Verified 03/06/20 17:25 Review of Systems Review of Systems: Narrative: CONSTITUTIONAL: Denies fever, chills, or sweats. EYES: Denies visual changes, redness, or discharge. ENT: Denies rhinorrhea, congestion, sore throat, or otalgia. CARDIOVASCULAR: Denies chest pain, palpitations, or edema. RESPIRATORY: Denies cough or dyspnea. GASTROINTESTINAL: Denies abdominal pain, nausea, vomiting, or diarrhea. GENITOURINARY: Denies dysuria or hematuria. SKIN: Denies rash or itching. MUSCULOSKELETAL: Denies back pain,positive for right knee joint pain lateral aspect with edema, or myalgia. NEUROLOGIC: Denies headache, numbness, or weakness. PSYCHIATRIC: Denies anxiety or depression. All systems reviewed & are unremarkable except as noted in HPI and below PMFSH Past Medical History Medical History (Updated 08/05/20 @ 17:31 by Hillary Alegre NP) Arthritis Cholelithiasis Coronary artery disease Heart attack HTN (hypertension), malignant Hyperlipidemia Pain of right patella Umbilical hernia Surgical History Surgical History H/O elbow surgery Left History of intravascular stent placement History of tonsillectomy Family History Family History Father Family history of coronary artery disease Grandparent Family history of coronary artery disease Father Acute myocardial infarction Mother Heart disease She has about 7 stents Social History Social History (Updated 08/05/20 @ 17:27 by Hillary Alegre NP) Social History: The patient is to Nicolette who is his durable power consumer attorney for healthcare. Patient to be a full code. 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 He is sounds smoking half a pack a cigarettes a day from 2 packs of cigarettes a day. He said he smoked for a very long time and cannot remember how old he was when he started. He denies any alcohol or illicit drugs. He has no biological children. But he has step children. Smoking packs per day: 0.5 Smoking cigarettes per day: 10.0
== END 2020-08-05 17:45 | disposition home or self-care (01) ==
PROVIDERS: Emergency Provider Registered Nurse
DX: S89.91XA Unspecified injury of right lower leg, initial encounter (principal); W01.198A Fall on same level from slipping, tripping and stumbling with subsequent striking against other object, initial encounter; M19.90 Unspecified osteoarthritis, unspecified site; I25.10 Atherosclerotic heart disease of native coronary artery without angina pectoris; I25.2 Old myocardial infarction; I10 Essential (primary) hypertension; E78.5 Hyperlipidemia, unspecified; Z87.891 Personal history of nicotine dependence
CPT/HCPCS: 73564; 99213; G0463; L1830

== ENCOUNTER 2022-02-14 21:25 | Emergency (ER) | payer OTHER, SELFPAY ==
--- NOTE | ~2022-02-14 | CT_ITS ---
EXAMINATION: CT brain wo con INDICATION: Head injury COMPARISON: None TECHNIQUE: Standard unenhanced head CT. The dose-length product (DLP) was 605.33 mGy-cm. The mA was a djusted according to patient size. Iterative reconstruction technique was employed. FINDINGS: There is a left parietal scalp hematoma. There is no intracranial hemorrhage, acute infarct ion, or abnormal mass lesion. The ventricles are normal. There is no abnormal mass effect or midline shift. The potts-white matter differentiation is normal. The basal cisterns are patent. The orbits are normal. The paranasal sinuses, mastoids and calvarium are normal. IMPRESSION: 1. Left parietal scalp hematoma without acute intracranial abnormality. Reviewed, dictated and finalized at location A.
[2022-02-14 21:26] VITALS: BP 181/103; PULSE 106; RESP 20; TEMP 36.2; O2SAT 98
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
[2022-02-14] MEDS: TETANUS,DIPHTHERIA,AC PERTUSSIS ADULT (0.5 ML) BOOSTRIX IM (23:00)
[2022-02-14 23:16] VITALS: BP 147/99
--- NOTE | 2022-02-14 23:16 | PC.NURSE ---
Transfer pt care to Melody Gregorio RN
[2022-02-15 01:04] VITALS: BP 151/100; PULSE 85; RESP 18; O2SAT 98
== END 2022-02-15 01:00 | disposition home or self-care (01) ==
PROVIDERS: Emergency Provider Emergency Medicine
DX: S01.01XA Laceration without foreign body of scalp, initial encounter (principal); Z23 Encounter for immunization; I25.10 Atherosclerotic heart disease of native coronary artery without angina pectoris; I25.2 Old myocardial infarction; I10 Essential (primary) hypertension; E78.5 Hyperlipidemia, unspecified; M19.90 Unspecified osteoarthritis, unspecified site; Z79.82 Long term (current) use of aspirin; F17.210 Nicotine dependence, cigarettes, uncomplicated; Y00.XXXA Assault by blunt object, initial encounter
CPT/HCPCS: 12001; 70450; 90471; 90715; 99284

== ENCOUNTER 2023-01-23 17:39 | Emergency (ER) | payer OTHER, SELFPAY ==
--- NOTE | ~2023-01-23 | XR_ITS ---
Right Hand Technique: PA, oblique, and lateral views were obtained. Clinical History: Fourth PIP joint pain Findings: No acute fracture or dislocation is seen. Osseous alignment is anatomic. Joint spaces are p reserved. Soft tissues are unremarkable. Impression: Unremarkable right hand. Reviewed, dictated and finalized at location . Impression: Unremarkable right hand.
[2023-01-23 17:47] VITALS: BP 120/71; PULSE 82; RESP 18; TEMP 36.8; O2SAT 97
--- NOTE | 2023-01-23 18:20 | ED.UPPEXIN ---
HPI - Extremity Injury (Upper) General Chief Complaint: Extremity Injury, Upper Stated Complaint: R 4TH DIGIT INJURY Time Seen by Provider: 01/23/23 17:58 History of Present Illness HPI narrative: 52-year-old male reports for evaluation for right fourth PIP pain after he injured just prior to arrival. Patient states he was lifting a log not on a car and jammed his finger. States his PIP hyperextended and he reduced it immediately and heard a pop. He is now having pain, ecchymosis and edema overlying the PIP joint. He has full extension and flexion of his fourth finger. No tenderness to DIP or MCP. No tenderness to remainder of hand. Denies numbness. He has not taken anything for pain Related Data Home Medications Medication Instructions Recorded Confirmed aspirin 81 mg tablet,delayed 81 mg PO DAILY 07/12/19 08/05/20 release (Adult Aspirin Regimen) atorvastatin 80 mg tablet 80 mg PO DAILY 07/12/19 08/05/20 metoprolol tartrate 25 mg tablet 12.5 mg PO BID 07/12/19 08/05/20 lisinopril 20 mg tablet 10 mg PO DAILY 09/06/19 08/05/20 albuterol 90 mcg/actuation aerosol mcg inhalation PRN Bronchodilation 02/14/22 inhaler phendimetrazine tartrate 35 mg mg PO 02/14/22 capsule tiotropium bromide 18 mcg capsule 1 cap inhalation DAILY 02/14/22 with inhalation device (Spiriva with HandiHaler) Allergies Allergy/AdvReac Type Severity Reaction Status Date / Time No Known Allergies Allergy Verified 02/14/22 21:37 Review of Systems Review of Systems: CONSTITUTIONAL: Denies fever, chills EYES: Denies visual changes, redness, or discharge. ENT: Denies rhinorrhea, congestion, sore throat, or otalgia. CARDIOVASCULAR: Denies chest pain, palpitations, or edema. RESPIRATORY: Denies cough or dyspnea. GASTROINTESTINAL: Denies abdominal pain, nausea, vomiting, or diarrhea. GENITOURINARY: Denies dysuria or hematuria. SKIN: Denies rash or itching. MUSCULOSKELETAL: See HPI NEUROLOGIC: Denies headache, numbness, dizziness, or weakness. PSYCHIATRIC: Denies anxiety or depression. [facility] Past Medical History Medical History Arthritis Cholelithiasis Coronary artery disease Heart attack HTN (hypertension), malignant Hyperlipidemia Pain of right patella Umbilical hernia Surgical History Surgical History H/O elbow surgery Left History of intravascular stent placement History of tonsillectomy Family History Family History Father Family history of coronary artery disease Grandparent Family history of coronary artery disease Father Acute myocardial infarction Mother Heart disease She has about 7 stents Social History Social History Social History: The patient is to Nicolette who is his durable power diffuser operator for healthcare. Patient to be a full code. 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 He is sounds smoking half a pack a cigarettes a day from 2 packs of cigarettes a day. He said he smoked for a very long time and cannot remember how old he was when he started. He denies any alcohol or illicit drugs. He has no biological children. But he has step children. Smoking packs per day: 0.5 Smoking cigarettes per day: 10.0 Years smoked: 32 Smoking pack-years: 16.00 Smoking status: Former smoker Tobacco type: cigarettes Smoking end date: 09/09/19 Additional smoking assessment comments: smoked 2 packs a day for 25 years. 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
[2023-01-23] MEDS: HYDROcodone/acetaminophen (*CRX) 5-325 MG TABLET 1 TAB PO (18:42)
[2023-01-23 19:18] VITALS: BP 118/69; PULSE 83; RESP 18; O2SAT 98
== END 2023-01-23 19:19 | disposition home or self-care (01) ==
PROVIDERS: Emergency Provider Physician Assistant
DX: S63.634A Sprain of interphalangeal joint of right ring finger, initial encounter (principal); I25.10 Atherosclerotic heart disease of native coronary artery without angina pectoris; I25.2 Old myocardial infarction; I10 Essential (primary) hypertension; E78.5 Hyperlipidemia, unspecified; M19.90 Unspecified osteoarthritis, unspecified site; Z87.891 Personal history of nicotine dependence; Z79.82 Long term (current) use of aspirin; X50.9XXA Other and unspecified overexertion or strenuous movements or postures, initial encounter
CPT/HCPCS: 29130; 73130; 99283; A9270

== ENCOUNTER 2023-07-12 12:35 | Emergency (ER) | payer OTHER, SELFPAY ==
--- NOTE | ~2023-07-12 | XR_ITS ---
EXAMINATION: [id number] DATE: 07/12/2023 13:08 INDICATION: Posterolateral right lower rib pain with inspiration post fall TECHNIQUE: PA view of the chest and 4 views of the right ribs were obtained. COMPARISON: Chest CT dated 04/11/2019 FINDINGS: No rib fractures identified. Unchanged horizontal band of discoid atelectasis/scarring at the right m iddle lobe. Additional mild streaky atelectasis at the bilateral lung bases. No pulmonary edema, pleu ral effusion or pneumothorax. Heart size is normal. IMPRESSION: 1. No evident right rib fractures. 2. Mild atelectasis/scarring in the bilateral lower lungs. No other acute cardiopulmonary disease. Reviewed, dictated and finalized at location A. ETING AGENT IMPRESSION: 1. No evident right rib fractures. 2. Mild atelectasis/scarring in the bilateral lower lungs. No other acute cardi opulmonary disease.
[2023-07-12 12:52] VITALS: BP 131/88; PULSE 72; RESP 20; TEMP 36.9; O2SAT 100
--- NOTE | 2023-07-12 14:36 | ED.FALL ---
HPI - Fall General Chief Complaint: Fall Stated Complaint: R sided rib pain Time Seen by Provider: 07/12/23 14:36 [id number] Jesus is a 53-year-old male patient presenting to the ER today for a slip and fall on the ice. He reports he is having right posterior rib pain. States it hurts to take a deep breath, cough, or sneeze. Denies any other injury. Denies hitting his head or any neck pain. No LOC Source: patient Mode of arrival: ambulatory Limitations: no limitations Related Data Home Medications Medication Instructions Recorded Confirmed aspirin 81 mg tablet,delayed 81 mg PO DAILY 07/12/19 08/05/20 release (Adult Aspirin Regimen) atorvastatin 80 mg tablet 80 mg PO DAILY 07/12/19 08/05/20 metoprolol tartrate 25 mg tablet 12.5 mg PO BID 07/12/19 08/05/20 lisinopril 20 mg tablet 10 mg PO DAILY 09/06/19 08/05/20 albuterol 90 mcg/actuation aerosol mcg inhalation PRN Bronchodilation 02/14/22 inhaler phendimetrazine tartrate 35 mg mg PO 02/14/22 capsule tiotropium bromide 18 mcg capsule 1 cap inhalation DAILY 02/14/22 with inhalation device (Spiriva with HandiHaler) Allergies Allergy/AdvReac Type Severity Reaction Status Date / Time No Known Allergies Allergy Verified 02/14/22 21:37 Review of Systems Review of Systems: Pertinent positives per HPI. Patient denies any fever, chills, rash, headache, visual changes, dizziness, cough, runny nose, sore throat, shortness of breath, chest pain, palpitations, nausea, vomiting, diarrhea, constipation, abdominal pain, or any urinary issues. [facility] Past Medical History Medical History Arthritis Cholelithiasis Coronary artery disease Heart attack HTN (hypertension), malignant Hyperlipidemia Pain of right patella Umbilical hernia Surgical History Surgical History H/O elbow surgery Left History of intravascular stent placement History of tonsillectomy Family History Family History Father Family history of coronary artery disease Grandparent Family history of coronary artery disease Father Acute myocardial infarction Mother Heart disease She has about 7 stents Social History Social History Social History: The patient is to Nicolette who is his durable power commercial litigation attorney for healthcare. Patient to be a full code. 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 He is sounds smoking half a pack a cigarettes a day from 2 packs of cigarettes a day. He said he smoked for a very long time and cannot remember how old he was when he started. He denies any alcohol or illicit drugs. He has no biological children. But he has step children. Smoking packs per day: 0.5 Smoking cigarettes per day: 10.0 Years smoked: 32 Smoking pack-years: 16.00 Smoking status: Former smoker Tobacco type: cigarettes Smoking end date: 09/09/19 Additional smoking assessment comments: smoked 2 packs a day for 25 years. 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 There is no relevant family history pertinent to the patient complaint. Exam Narrative: General: Well-developed, well nourished, in no apparent distress Head: Normocephalic, atraumatic. Chest: Symmetric, no bruising or swelling noted, even rise and fall of the chest wall with respirations, tenderness to palpation over the posterior mid right ribs Cardio: R
--- NOTE | 2023-07-12 14:47 | PC.NURSE ---
Pt with reg resp. Denies shortness of breath or labored breathing. Resp therapy called for Incentive Spirotomy & education
[2023-07-12 14:55] VITALS: BP 138/80; PULSE 78; RESP 16; TEMP 36.6; O2SAT 98
== END 2023-07-12 14:59 | disposition home or self-care (01) ==
LOC: ANHED 14:47
PROVIDERS: Emergency Provider Nurse Practitioner Family
DX: S20.211A Contusion of right front wall of thorax, initial encounter (principal); I25.10 Atherosclerotic heart disease of native coronary artery without angina pectoris; I25.2 Old myocardial infarction; I10 Essential (primary) hypertension; E78.5 Hyperlipidemia, unspecified; M19.90 Unspecified osteoarthritis, unspecified site; F17.210 Nicotine dependence, cigarettes, uncomplicated; Z95.5 Presence of coronary angioplasty implant and graft; Z79.82 Long term (current) use of aspirin; W00.0XXA Fall on same level due to ice and snow, initial encounter
CPT/HCPCS: 71101; 99283

== ENCOUNTER 2023-07-19 18:00 | Emergency (ER) | payer OTHER, SELFPAY ==
--- NOTE | ~2023-07-19 | XR_ITS ---
EXAMINATION: [id number] Exam Date/Time: 07/19/2023 18:15 BOTTLE SELECTOR HISTORY: PT. FELL ON ICE X 6 DAYS AGO. RT LAT. RIB PAIN. Comparison: 07/12/2023. RESULT: Lines, tubes, and devices: None. Lungs and pleura: Clear. Minimal left basilar scar/atelectasis Cardiothymic silhouette: Stable. Other: Nondisplaced transverse fracture of the right posterior lateral eighth rib. Mildly displaced transverse fracture of the posterolateral seventh rib. No acute upper abdominal finding. IMPRESSION: Acute/subacute fractures of the right posterolateral seventh and eighth ribs. Reviewed, dictated and finalized at location K. LE SELECTOR
[2023-07-19 18:08] VITALS: BP 154/90; PULSE 82; RESP 20; TEMP 37.1; O2SAT 98
--- NOTE | 2023-07-19 18:38 | ED.FALL ---
HPI - Fall General Chief Complaint: Fall Stated Complaint: Pain on right side from fall History of Present Illness HPI Narrative: Patient continues with right rib pain and discomfort. No shortness of breath and no chest pain. Patient fell on the ice 7 days ago and landed on his right side. Patient was evaluated with a negative chest x-ray at [facility]. Patient presents today for further evaluation treatment of continued right rib pain. Patient denies any new injury. Related Data Home Medications Medication Instructions Recorded Confirmed aspirin 81 mg tablet,delayed 81 mg PO DAILY 07/12/19 07/19/23 release (Adult Aspirin Regimen) atorvastatin 80 mg tablet 80 mg PO DAILY 07/12/19 07/19/23 metoprolol tartrate 25 mg tablet 25 mg PO DAILY 07/12/19 07/19/23 ezetimibe 10 mg tablet 10 mg PO DAILY 07/19/23 07/19/23 lisinopril 10 mg tablet 10 mg PO DAILY 07/19/23 07/19/23 Allergies Allergy/AdvReac Type Severity Reaction Status Date / Time No Known Allergies Allergy Verified 02/14/22 21:37 Review of Systems Review of Systems: CONSTITUTIONAL: Denies fever, chills, or sweats. EYES: Denies visual changes, redness, or discharge. ENT: Denies rhinorrhea, congestion, sore throat, or otalgia. CARDIOVASCULAR: Denies chest pain, palpitations, or edema. RESPIRATORY: Denies cough or dyspnea. GASTROINTESTINAL: Denies abdominal pain, nausea, vomiting, or diarrhea. GENITOURINARY: Denies dysuria or hematuria. SKIN: Denies rash or itching. MUSCULOSKELETAL: Denies back pain, joint pain, or myalgia. NEUROLOGIC: Denies headache, numbness, or weakness. PSYCHIATRIC: Denies anxiety or depression. [facility] Past Medical History Medical History Arthritis Cholelithiasis Coronary artery disease Heart attack HTN (hypertension), malignant Hyperlipidemia Pain of right patella Umbilical hernia Surgical History Surgical History H/O elbow surgery Left History of intravascular stent placement History of tonsillectomy Family History Family History Father Family history of coronary artery disease Grandparent Family history of coronary artery disease Father Acute myocardial infarction Mother Heart disease She has about 7 stents Social History Social History Social History: The patient is to Nicolette who is his durable power parallel computing software engineer for healthcare. Patient to be a full code. 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 He is sounds smoking half a pack a cigarettes a day from 2 packs of cigarettes a day. He said he smoked for a very long time and cannot remember how old he was when he started. He denies any alcohol or illicit drugs. He has no biological children. But he has step children. Smoking packs per day: 0.5 Smoking cigarettes per day: 10.0 Years smoked: 32 Smoking pack-years: 16.00 Smoking status: Former smoker Tobacco type: cigarettes Smoking end date: 09/09/19 Additional smoking assessment comments: smoked 2 packs a day for 25 years. 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 There is no relevant family history pertinent to the presenting complaint Exam Narrative: GENERAL: Well-appearing, well-nourished, and in no acute distress. HEAD: Normocephalic, atraumatic. EYES: PERRLA and EOMI. ENT: Nares clear, no rhinorrhea or epistaxis. Mucous membranes moist. NECK: S
== END 2023-07-19 18:55 | disposition home or self-care (01) ==
PROVIDERS: Emergency Provider Nurse Practitioner Family
DX: R07.81 Pleurodynia (principal); Z87.891 Personal history of nicotine dependence; M19.90 Unspecified osteoarthritis, unspecified site; I25.10 Atherosclerotic heart disease of native coronary artery without angina pectoris; I10 Essential (primary) hypertension; E78.5 Hyperlipidemia, unspecified; Z79.82 Long term (current) use of aspirin; Z95.5 Presence of coronary angioplasty implant and graft
CPT/HCPCS: 71101; 99213; G0463

== ENCOUNTER 2024-11-30 14:24 | Emergency (ER) | payer SELFPAY ==
--- NOTE | 2024-11-30 14:27 | ED.HA ---
HPI - Headache General Chief Complaint: Headache Stated Complaint: Light Headed/Headache Time Seen by Provider: 11/30/24 14:25 Source: patient Mode of arrival: ambulatory Limitations: no limitations History of Present Illness HPI Narrative: Jesus is a 54-year-old male patient presenting to the clinic today with complaints of lightheaded/headache that started this morning while at work. He works outside. He reports he has dealt with this before and will go home and eat, drink, and lay down for a little while and he will feel better. He went home from work today and as he stated he ate something, drink something, and laid down and now his symptoms have resolved. He denies any history of diabetes. Denies any current visual changes, headache, dizziness, shortness breath, or chest pain. History of CAD with a cardiac stent. Takes daily baby aspirin. He is a former smoker. Work required him to come in to be checked out and received a doctor's note. Related Data Home Medications ?Medication ?Instructions ?Recorded ?Confirmed ?Last Taken ?Type aspirin 81 mg tablet,delayed 81 mg PO DAILY 07/12/19 07/19/23 02/11/20 History release (Adult Aspirin Regimen) atorvastatin 80 mg tablet 80 mg PO DAILY 07/12/19 07/19/23 02/11/20 History ezetimibe 10 mg tablet 10 mg PO DAILY 07/19/23 07/19/23 Unknown History lisinopril 10 mg tablet 10 mg PO DAILY 07/19/23 07/19/23 Unknown History metoprolol succinate 25 mg mg PO 11/30/24 Unknown History tablet,extended release 24 hr Allergies Allergy/AdvReac Type Severity Reaction Status Date / Time No Known Allergies Allergy Verified 11/30/24 14:28 Review of Systems Review of Systems: Pertinent positives per HPI. Patient denies any fever, chills, rash, visual changes, cough, shortness of breath, chest pain, palpitations, nausea, vomiting, diarrhea, constipation, abdominal pain, or any urinary issues. REPLACED BY [facility] Past Medical History Medical History Pain of right patella Cholelithiasis HTN (hypertension), malignant Umbilical hernia Heart attack Coronary artery disease Hyperlipidemia Arthritis Surgical History Surgical History H/O elbow surgery Left History of intravascular stent placement History of tonsillectomy Family History Family History Father Family history of coronary artery disease Grandparent Family history of coronary artery disease Father Acute myocardial infarction Mother Heart disease She has about 7 stents Social History Social History Social History: The patient is to Nicolette who is his durable power environmental attorney for healthcare. Patient to be a full code. 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 He is sounds smoking half a pack a cigarettes a day from 2 packs of cigarettes a day. He said he smoked for a very long time and cannot remember how old he was when he started. He denies any alcohol or illicit drugs. He has no biological children. But he has step children. Smoking packs per day: 0.5 Smoking cigarettes per day: 10.0 Years smoked: 32 Smoking pack-years: 16.00 Smoking status: Former smoker Tobacco type: cigarettes Smoking end date: 09/09/19 Additional smoking assessment comments: smoked 2 packs a day for 25 years. 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 There is no relevant family history pertinent to the patient complaint. Exam Narrative: General: Well-developed, well nourished, in no apparent distress Head: Normocephalic, atraumatic Eyes: Pupils equally round and reactive to light bilaterally, EOM intact, sclera and conjunctive clear, no discharge, lids normal Ears: TMs intact and clear, ear canals clear, no drainage, grossly hearing normal. Nose: Nares patent, no discharge, no inflammation, no sinus tenderness. Mouth: Oropharynx without lesions or masses, good dentition, MMM. Tongue midline, even rise and fall of uvula Neck: Supple, trachea midline, no enlargement of anterior or posterior cervical nodes, no thyroid masses or goiter palpable. Cardio: Regular rate and rhythm, s1 and s2 normal, no murmur appreciated. Resp: Clear to auscultation bilaterally anteriorly and posteriorly, no rhonchi, rales, wheezing or rubs Musculoskeletal: No deformity, non-tender to palpation, grossly normal range of motion, muscle strength strong and equal, peripheral pulse strong, no edema, no cyanosis, normal gait and station Neuro: Alert and oriented x4 with normal speech, no focal deficits, cranial nerves I through XII intact, muscle strength 5 out of 5, sensation intact bilaterally, negative Romberg test Course Course Emergency Course: Portions of this record may have been created with voice recognition software. Level of Care: Express Care Visit Vital Signs Vital signs: Vital Signs Temperature 37.0 C 11/30/24 14:34 Pulse Rate 84 11/30/24 14:34 Respiratory Rate 20 11/30/24 14:34 Blood Pressure 151/100 H 11/30/24 14:34 Pulse Oximetry 100 11/30/24 14:34 Oxygen Delivery Room Air 11/30/24 14:34 Temperature 37.0 C 11/30/24 14:34 Pulse Rate 84 11/30/24 14:34 Respiratory Rate 20 11/30/24 14:34 Blood Pressure 151/100 H 11/30/24 14:34 Pulse Oximetry 100 11/30/24 14:34 Oxygen Delivery Room Air 11/30/24 14:34 Vital signs reviewed MDM - Headache MDM Narrative Medical decision making narrative: At the time of visit patient is resting comfortably on the exam table. Patient appears to be nontoxic. Neuro checks are within normal limits Plan: Patient reports acute headache and lightheadedness has resolved since he has gone home to eat, drink some fluids, and has laid down. States his work requires him to come up to the [facility] to be checked out and received a doctor's note. Supportive measures were discussed with the patient and they voiced understanding discharge instructions and agrees to treatment plan. Return precautions reviewed Differential Diagnosis Differential diagnosis: Likely migraine, tension headache, subarachnoid hemorrhage, headache, meningitis, sinusitis and other (Vertigo) Discharge Plan Discharge Clinical Impression: Acute headache Qualifiers: Headache type: unspecified Intractability: not intractable Qualified Code(s): R51.9 - Headache, unspecified Patient Disposition: Home Condition: Stable Instructions: Antibiotic Form, Acute Headache (ED) Additional Instructions: Blood pressure is elevated in the clinic today Continue current medications Increase fluids and stay well hydrated May take Tylenol/Motrin as needed for pain Follow-up with your provider in 3-5 days if symptoms persist Go to the emergency room if your symptoms worsen-worsening headache, dizziness, visual changes, confusion, weakness, lethargy, slurred speech, chest pain, or shortness of breath You have an elevated blood pressure in the clinic today and I recommend follow-up with primary care physician to have this reevaluated within the next week if symptoms persist. [place] Heart guidelines state that normal blood pressure is 120/80 or less. Anything over 120/80 is considered elevated and should be monitored. You may need to decrease you salt intake and eat a heart healthy diet to help lower you blood pressure, other treatments would include decreasing stress, weight loss, stop caffeine, and quit smoking. Your primary care provider can determine whether you need to start antihypertensive medications. Untreated high blood pressure can cause dizziness, headaches, visual changes, blindness, kidney failure, stroke, heart attack, and male impotence. Patient Language: Kyrgyz Prescriptions: No Action metoprolol succinate 25 mg tablet extended release 24 hr PO lisinopril 10 mg tablet 10 mg PO DAILY ezetimibe 10 mg tablet 10 mg PO DAILY aspirin [Adult Aspirin Regimen] 81 mg tablet,delayed release (DR/EC) 81 mg PO DAILY atorvastatin 80 mg tablet 80 mg PO DAILY Follow-up/Referrals: Francisco,MD Giovanny [Primary Care Provider] - Stand Alone Forms: Work/School Release IP Time of Disposition: 14:40 Quality NIHSS Nursing Documentation ED NIHSS nursing documentation: reviewed/agree
[2024-11-30 14:34] VITALS: BP 151/100; PULSE 84; RESP 20; TEMP 37; O2SAT 100
--- OUTSIDE RECORDS SUMMARY | 2024-11-30 15:05 | XMS_ITS | Clinical Summary ---
Author Organization [facility] Address [address] [place] [address] Phone Care Team Providers Care Grinder Set Up Operator Surface Name Role Phone Unavailable Primary Care Provider Unavailabl e Allergies No known active allergies Medications No known medications Active Problems Problem Noted Date Diagnosed Date Family history of myocardial infarction at age l ess than 60 06/09/2017 Smoker 06/09/2017 Trigger finger of left hand 06/09/2017 Arthralgia 06/09/2017 Left hand pain 06/09/2017 Well adult exam 06/09/2017 Family History Medical History Relation Name Comments Heart Attack Father Heart Attack Maternal Grandmother Heart Attack Mother Osteoarthritis Mother Heart Attack Paternal Grandfather Heart Attack Paternal Grandmother Relation Name Status Comments Brother Alive Father Maternal Grandfather Maternal Grandmother Mother Alive Paternal Grandfather Paternal Grandmother Sister Alive Social History Tobacco Use Types Packs/Day Years Used Date Smoking Tobacco: Every Day Cigarettes Smokeless Tobacco: Never Tobacco Cessation:Ready to Q uit: No; Counseling Given: Yes Alcohol Use Standard Drinks/Week Comments No 0 (1 standard drink = 0.6 oz pur e alcohol) Sexually Active Control Partners Comments Yes Female Sex and Gender Information Value Date Recorded Sex Assigned at Not on file 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 Gender Identity Not on file Sexual Orientation Not on file Last Filed Vital Signs Vital Sign Reading Time Taken Comments Blood Pressure 124/80 06/09/2017 9:32 AM VIDEO SPECIALIST Pulse 74 06/09/2017 9:32 AM VIDEO SPECIALIST Temperature 36.7 C (98 F) 06/09/2017 9:32 AM VIDEO SPECIALIST Respiratory Rate 20 06/09/2017 9:32 AM VIDEO SPECIALIST Oxygen Saturation 98% 06/09/2017 9:32 AM VIDEO SPECIALIST Inhaled Oxygen Concentration - - Weight 100.7 kg (222 lb 1.6 oz) 06/09/2017 9:32 AM VIDEO SPECIALIST Height 185.4 cm (6' 1) 06/09/2017 9:32 AM VIDEO SPECIALIST Body Mass Index 29.3 06/09/2017 9:32 AM VIDEO SPECIALIST Plan of Treatment Health Maintenance Due Date Last Done Comments Hepatitis C Virus (HCV) Screening 1972 TdaP Immunization 1972 Hepatitis B Immunization (1 of 3 - 19+ 3-dose series) 1991 Colonoscopy 2017 Colorectal Cancer Screening 2017 Cologuard 2022 Immunochemical Fecal Occult Blood 2022 Pneumococcal Immunization (5 0+ years) (1 of 1 - PCV) 2022 Zoster Immunization (1 of 2) 2022 Influenza Immunization (#1) 2024 SARS-COV-2 Immunization (3 - season) 2024 10/11/2020, 09/20/2020 Respiratory Syncytial Virus (RSV) Immunization (Adult) (1 - 1-dose 75+ series) 2047 Meningococcal Immunization (ACWY) Aged Out No longer eligible b ased on patient's age to complete this topic Pneumococcal Immunization Combined Aged Out No longer eligible b ased on patient's age to complete this topic Rotavirus Immunization Aged Out No lo nger eligible based on patient's age to complete this topic
--- OUTSIDE RECORDS SUMMARY | 2024-11-30 15:05 | XMS_ITS | Clinical Summary ---
Author Organization [facility] Address [address] [place] [address] Care Team Providers Care Grape Crusher Name Role Phone Unavailable Primary Care Provider Unavailabl e Source Comments [facility],non-owned Affiliates and Associated Physician Practices is amultiple site organization consisting of ambulatory clinics and hospital sitesin [place], [place], [place] and [place]. This disclosure is being madepursuant to the Care Everywhere program and may not contain all information available regarding this patient. Last updated 18.[facility] Allergies No known active allergies Medications * Be aware that medications may not be up to date on this document. Alwaysverify current medications with the patient. meloxicam (MOBIC) 15 MG tablet Take 1 tablet by mouth once daily 30 tablet 2 12/23/2017 Active metaxalone (SKELAXIN) 800 MG tablet Take 1 tablet by mouth 3 times daily as needed for Muscle Spasms 90 tablet 3 12/23/2017 Active Active Problems Problem Noted Date Diagnosed Date Other fatigue 12/23/2017 Polyarthralgia 12/23/2017 Chronic right-sided low back pain without sciati ca 12/23/2017 Family History Medical History Relation Name Comments None Known Brother Arthritis - Osteo Maternal Grandmother Arthritis - Rheumatoid Mother Crohn's Disease Mother None Known Sister Relation Name Status Comments Brother Father Maternal Grandmother Mother Sister Social History Tobacco Use Types Packs/Day Years Used Date Smoking Tobacco: Every Day Cigarettes 1.5 30 Smokeless Tobacco: Never Alcohol Use Standard Drinks/Week Comments No 0 (1 standard drink = 0.6 oz pur e alcohol) Sex and Gender Information Value Date Recorded Sex Assigned at Not on file 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 Gender Identity Not on file Sexual Orientation Not on file 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 Not on file Not on file Not o n file Last Filed Vital Signs Vital Sign Reading Time Taken Comments Blood Pressure 130/88 12/23/2017 9:53 AM CDT Pulse 74 12/23/2017 9:53 AM CDT Temperature 37 C (98.6 F) 12/23/2017 9:53 AM CDT Respiratory Rate - - Oxygen Saturation - - Inhaled Oxygen Concentration - - Weight 101.2 kg (223 lb) 12/23/2017 9:53 AM CDT Height 184.2 cm (6' 0.5) 12/23/2017 9:53 AM CDT Body Mass Index 29.83 12/23/2017 9:53 AM CDT Plan of Treatment Health Maintenance Due Date Last Done Comments COLOGUARD (AGES 45-75) - COL ON CA SCREENING 1972 COLON MONITORING 1972 COLONOSCOPY - COLON CA SCREENING 1972 CT COLONOGRAPHY - COLON CA SCREENING 1972 Colorectal Cancer Screening 1972 FIT - COLON CA SCREENING 1972 FLEX SIG - COLON CA SCREENING 1972 LIPID TESTING 1972 HIV SCREENING 1987 DTAP/TDAP/TD VACCINES (1 - Tdap) 1991 HEPATITIS B VACCINE (1 of 3 - 19+ 3-dose series) 1991 SCREENING FOR DIABETES 12/23/2020 12/23/2017 PNEUMOCOCCAL VACCINE 50+ (1 of 1 - PCV) 2022 ZOSTER VACCINE (1 of 2) 2022 COVID-19 VACCINE (1 - 2023-2 5 season) 2024 DEPRESSION SCREENING 06/21/2024 INFLUENZA VACCINE (Season Ended) 2025 HEPATITIS C SCREENING Completed 12/23/2017 HIB VACCINE Aged Out No longer eligi ble based on patient's age to complete this topic HPV VACCINE Aged Out No longer eligi ble based on patient's age to complete this topic MENINGOCOCCAL (Group B) VACC INE SHARED DECISION-MAKING Aged Out No longer eligibl e based on patient's age to complete this topic MENINGOCOCCAL GROUPS A/C/Y/W VACCINE Aged Out No longer eligible b ased on patient's age to complete this topic Procedures Procedure Name Priority Date/Time Associated Diagnosis Comments COMPREHENSIVE METABOLIC PANEL Routine 12/23/2017 10:59 AM CDT Polyarthralgia Myalgia Other fatigue Chronic right-sided low back pain without sciatica HEPATITIS C ANTIBODY Routine 12/23/2017 10:59 AM [facility] Polyarthralgia Myalgia Other fatigue Chronic right-sided low back pain without sciatica from Last 3 Months or Most Recently Relevant to Health Maintenance Results * COMPREHENSIVE METABOLIC PANEL (12/23/2017 10:59 AM T) BUN 16 7 - 26 mg/dL 12/23/2017 12:08 PM [facility] Creatinine 0.8 0.6 - 1.2 mg/dL 12/23/2017 12:08 PM [facility] Sodium 138 136 - 145 mmol/L 12/23/2017 12:08 PM [facility] Potassium 4.1 3.5 - 4.5 mmol/L 12/23/2017 12:08 PM [facility] Chloride 104 98 - 107 mmol/L 12/23/2017 12:08 PM [facility] CO2 26 22 - 29 mmol/L 12/23/2017 12:08 PM [facility] Glucose 97 70 - 115 mg/dL 12/23/2017 12:08 PM [facility] Calcium 9.3 8.4 - 10.2 mg/dL 12/23/2017 12:08 PM [facility] Protein Total 7.5 6.0 - 8.3 g/dL 12/23/2017 12:08 PM [facility] Albumin 3.9 3.4 - 5.0 g/dL 12/23/2017 12:08 PM [facility] Bilirubin Total 0.3 0.2 - 1.2 mg/dL 12/23/2017 12:08 PM [facility] Alkaline Phosphatase 81 40 - 150 Units/L 12/23/2017 12:08 PM [facility] ALT 29 0 - 55 Units/L 12/23/2017 12:08 PM [facility] AST 19 5 - 34 Units/L 12/23/2017 12:08 PM [facility] Anion Gap 12 8 - 18 12/23/2017 12:08 PM [facility] BUN/Creatinine Ratio 20 7 - 23 12/23/2017 12:08 PM [facility] Osmolality Calculated 287 270 - 300 mOsm/kg 12/23/2017 12:08 PM [facility] Albumin/Globulin Ratio 1.1 1.1 - 2.3 12/23/2017 12:08 PM [facility] eGFR >60 >60 mL/min/1.7 3 m2 12/23/2017 12:08 PM [facility] Blood BLOOD SPECIMEN / Unknown Lab Venipuncture / Unknown 12/23/2017 10:59 AM CDT 12/23/2017 11:37 AM CDT Lesli Mcneil MD LAB - CHEMISTRY ORDERA BLES Final Result Performing Organization Address [facility]/ZIP Co de Phone Number [address] [phone] * HEPATITIS C ANTIBODY (12/23/2017 10:59 AM CDT) Pathologist [facility] Hepatitis C Antibody Non-react john Non-reac tive 12/23/2017 12:24 PM [facility] Comment: Hepatitis C Antibody screen indicates no serologic evidence of past or current infection with Hepatitis C Virus. Patients with unexplained liver disease who are immunocompromised or suspected of having acute Hepatitis C infection may benefit from Nucleic Acid Test (ANTONIO) for Hepatitis C Viral RNA to confirm Hepatitis C status. Blood BLOOD SPECIMEN / Unknown Lab Venipuncture / Unknown 12/23/2017 10:59 AM CDT 12/23/2017 11:38 AM CDT Lesli Mcneil MD LAB - CHEMISTRY ORDERA BLES Final Result [address] [phone] from Last 3 Months or Most Recently Relevant to Health Maintenance Insurance [facility] MEDICAID - OUT OF STATE [facility]
--- OUTSIDE RECORDS SUMMARY | 2024-11-30 15:05 | XMS_ITS | Clinical Summary ---
Author Organization [facility] [address] Address [address] [place] [address] Care Team Providers Care Staff Nuclear Medicine Technologist Name Role Phone Giovanny Singh MD Primary Care Provider [phone] Allergies No known active allergies Medications aspirin 81 mg enteric coated tablet Take 1 tablet (81 mg total) by mouth daily 90 tablet 1 04/04/20 19 Active albuterol HFA (ProAir HFA) 90 mcg/actuation inhaler Inhale 2 puffs every 4 (four) hours as needed for wheezing 8.5 g 11 05/21/20 21 Active Spiriva with HandiHaler 18 mcg per inhalation capsule INHALE 1 CAPSULE VIA HANDIHALER ONCE DAILY AT THE SAME TIME EVERY DAY 30 capsule 5 10/30/19 22 Active Wixela Inhub 250-50 mcg/dose diskus inhaler INHALE 1 PUFF TWICE A DAY -RINSE MOUTH WITH WATER AFTER USE. DO NOT SWALLOW. 60 each 5 12/02/19 22 Active meloxicam (MOBIC) 15 mg tablet Take 1 tablet (15 mg total) by mouth daily 60 tablet 07/20/19 24 Active Additional Information Patient not taking.Reported on 05/03/2024 cyclobenzaprin e (FLEXERIL) 10 mg tablet TAKE 1 TABLET BY MOUTH THREE TIMES A DAY NEEDED FOR MUSCLE SPASMS 60 tablet 10/15/19 24 Active lisinopriL (PRINIVIL,ZEST RIL) 10 mg tablet TAKE 1 TABLET BY MOUTH EVERY DAY 90 tablet 3 04/27/20 24 Active nitroglycerin (NITROSTAT) 0.[address] 1 tablet (0.4 mg total) under the tongue every 5 (five) minutes as needed for chest pain May repeat dose q 5 min, up to 3 doses total 90 tablet 3 05/03/20 24 025 Active metoprolol XL (TOPROL-XL) 25 mg extended release tablet Take 1 tablet (25 mg total) by mouth daily 90 tablet 3 05/09/20 24 025 Active ezetimibe (ZETIA) 10 mg tablet TAKE 1 TABLET BY MOUTH EVERY DAY 90 tablet 1 11/02/19 25 Active atorvastatin (LIPITOR) 80 mg tablet TAKE 1 TABLET BY MOUTH EVERY DAY 90 tablet 1 11/02/19 25 Active ezetimibe (ZETIA) 10 mg tablet TAKE 1 TABLET BY MOUTH EVERY DAY 90 tablet 07/31/19 25 025 Discontinued atorvastatin (LIPITOR) 80 mg tablet TAKE 1 TABLET BY MOUTH EVERY DAY 90 tablet 08/04/19 25 025 Discontinued Active Problems Problem Noted Date Diagnosed Date Coronary artery disease of n ative artery of [place] heart with stable angina pectoris 06/03/2021 Assessment & Plan (06/03/2021 1:24 PM ANDROID IOS DEVELOPER): Patient has history of stent placement in 2018; continues to follow with Cardiology Patient on weight limited 30 lb lifting weight due to angina with increased exertion Continue ASA 81 mg, atorvastatin 80 mg, Zetia 10 mg; lisinopril 10 mg metoprolol 12.5 mg b.i.d. Sleep apnea 03/25/2020 Assessment & Plan (06/03/2021 1:26 PM ANDROID IOS DEVELOPER): Stable, improving control Patient reports that he recently received safe have, is beginning to get use to use Polyarthralgia 12/23/2017 Chronic right-sided low back pain without sciati ca 12/23/2017 Family history of myocardial infarction at age l ess than 60 06/09/2017 Smoker 06/09/2017 Assessment & Plan (06/03/2021 1:26 PM ANDROID IOS DEVELOPER): Patient has quit smoking, no longer using tobacco products Encouraged continue cessation for generalized health BURGSES (dyspnea on exertion) Assessment & Plan (06/03/2021 1:24 PM ANDROID IOS DEVELOPER): Patient reports he continues to have dyspnea on exertion, has exertion on climbing single flight of stairs or walking more than a few 100 yd at a time Patient has known coronary artery disease as well as COPD, unclear of specific source of dyspnea Continue to monitor and optimize treatments for COPD as well as coronary artery disease Chronic obstructive pulmonary disease (CMS/HCC) Assessment & Plan (06/03/2021 1:25 PM ANDROID IOS DEVELOPER): Patient continues to have dyspnea on exertion, unclear if COPD verses coronary artery disease; patient reports use of albuterol 1-2 times per day depending on amount of exertion Continue with sella in hub 250-51 puff b.i.d., tiotropium 18 mcg 1 puff daily Albuterol p.r.n. Continue follow-up with pulmonology for optimization of medicines Immunizations Immunization Administration Dates Next Due Influenza, Unspecified 04/07/2023(Deferr ed: Patient Refused),04/09/2022(Deferred: Patient Refused),06/03/2021(Deferred: Patient Refused),06/21/2020(Deferred: Patient Refused) Pfizer SARS-CoV-2 Monovalent Vaccination (12+ Yrs) PURPLE 10/11/2020,09/20/2020 Surgical History Surgery Date Site/Laterality Comments TONSILLECTOMY ELBOW SURGERY CARDIAC STENT PLACEMENT 06/21/2017 - 06/20/2018 Medical History Medical History Date Comments CAD (coronary artery disease) Hyperlipidemia Heart disease COPD (chronic obstructive pulmonary disease) (HC C) Degenerative joint disease Family History Medical History Relation Name Comments No Known Problems Brother Heart attack Father Heart disease Mother No Known Problems Sister 1 No Known Problems Sister 2 No Known Problems Sister 3 No Known Problems Sister 4 No Known Problems Sister 5 Relation Name Status Comments Brother Alive Father Mother Alive Sister 1 Alive Sister 2 Alive Sister 3 Alive Sister 4 Alive Sister 5 Alive Social History Tobacco Use Types Packs/Day Years Used Date Smoking Tobacco: Former Cigarettes Q uit: 09/2019 Smokeless Tobacco: Never Tobacco Cessation:Counseling Given: Not Answered Alcohol Use Standard Drinks/Week Comments No 0 (1 standard drink = 0.6 oz pur e alcohol) AUDIT-C Answer Date Recorded Q1: How often do you have a drink containing alc ohol? Never 06/03/2021 Average Number of Drinks Not on file 021 Q3: How often do you have si x or more drinks on one occasion? Never 06/03/2021 PHQ-2 Answer Date Recorded PHQ-2 Total Score (If total score is 3 or more points, staff should administer the PHQ-9) 0 07/20/2023 Sex and Gender Information Value Date Recorded Sex Assigned at Not on file Legal Sex Male 3:58 PM ANDROID IOS DEVELOPER Gender Identity Not on file Sexual Orientation Not on file Obstetrics History Last Filed Vital Signs Vital Sign Reading Time Taken Comments Blood Pressure 134/84 05/03/2024 9:17 AM ANDROID IOS DEVELOPER Pulse 82 05/03/2024 9:17 AM ANDROID IOS DEVELOPER Temperature 37 C (98.6 F) 06/03/2021 11:05 AM ANDROID IOS DEVELOPER Respiratory Rate 18 04/25/2021 12:05 PM CDT Oxygen Saturation 98% 05/03/2024 9:17 AM ANDROID IOS DEVELOPER Inhaled Oxygen Concentration - - Weight 111.1 kg (245 lb) 05/03/2024 9:17 AM ANDROID IOS DEVELOPER Height 185.4 cm (6' 1) 05/03/2024 9:17 AM ANDROID IOS DEVELOPER Body Mass Index 32.32 05/03/2024 9:17 AM ANDROID IOS DEVELOPER Plan of Treatment Health Maintenance Due Date Last Done Comments Colon Cancer Screening-Colonoscopy 1972 Hepatitis C Screening 1972 Prostate Cancer Screening-PSA 1972 DTaP/Tdap/Td Vaccine (1 - Tdap) 1983 Hepatitis B Screening 1990 Regular Well Visit/Exam 18-64 1990 Pneumococcal vaccine <65 (1 of 2 - PCV) 1991 Zoster Vaccine (1 of 2) 2022 Covid-19 Vaccine (3 - 2023- season) 2024, 09/20/2020 Depression Screening 07/20/2024 07/20/2023, 06/03/20 21 Influenza Vaccine (Season Ended) 2025 Insurance [employer] [facility] [employer] [facility] WORKERS COMPENSATION GENERIC Care Teams Staff Nuclear Medicine Technologist Relationship Specialty Start Date End Date [place] [id number] PCP - General Family Medicine 06/03/21
--- OUTSIDE RECORDS SUMMARY | 2024-11-30 15:05 | XMS_ITS | Continuity of Care Document ---
Author Organization [facility] Address [address] [place] [address] Phone Care Team Providers Care Hearing Dog Trainer Name Role Phone Devante Bautista MD Unavailable Unavailable Procedures Procedure Date Independent Medical Examination SUKHJINDER Office/outpatient visit,est, mod 2007 Supplemental Report Office/outpatient visit,est, mod 2007 X-ray exam of knee, 3 views Supplemental Report Office consultation, moderate 8 X-ray exam of knee, 1 or2 views 008 X-ray exam of both knees, standing Advance Directives Directive Yes / No Effective Date File Name No Information Encounters Encounter Description Practice Location Reason(s) For Visit Diagnoses Date Provider Providers Copied on Encounter [facility], [address] [place] [address], [id number], [place] [phone] [facility] No Information 3 6 Lily [place]. [address] [place] [address], [address], [id number] , [place]. tel: [phone] Independent Medical Examination SUKHJINDER [facility], [address] [place] [address], [id number], [place] [phone] [facility] Lesion of ulnar nerve, left upper limb 7201 [address] Lily [place]. [address] [place] [address], [place] [address], [place], [place], [id number] , [place]. tel: [phone] Office/outpat ient visit,est, [facility], [address], [id number], [place] [phone] [facility] No Information 8 Delano Hernandez. [address] [facility], [address], [id number] , [place]. tel: [phone] Office/outpat ient visit,est, [facility], [address] [place] [address], [id number], [place] tel:[phone] [facility] No Information 8 Delano Hernandez. [address] [place] [address], [id number] , [place]. tel: [phone] Office consultation, [facility], [address] [place] [address], [id number], [phone] [facility] No Information 8 Delano Hernandez. [address] [facility], [address], [id number] , [place]. tel: [phone] Family History Family Member Type Diagnosis Age At Onset No Information Payers Payer name Insurance type Covered green party ID Authoriza tion(s) No Information Social History Type Description Quantity Date Captured Comments Sex Male Smoking Status No Information Chief Complaint And Reason For Visit No Information Reason For Referral Reason For Referral No Information History Of Present Illness Encounter Date Complaint History Of Prese nt Illness No Information Functional Status Date Functional Assessmen t No Information Instructions Date Instruction Additional Infor mation No Information Assessments Type Assessment Date No Information Patient Care Teams Name Effective Dates (start - stop) Status Members No Information
--- OUTSIDE RECORDS SUMMARY | 2024-11-30 15:05 | XMS_ITS | Referral Summary ---
Author Organization [facility] [address] Address [address] [place] [address] Care Team Providers Care Scale Agent Name Role Phone Giovanny Singh MD Primary Care Provider [phone] Allergies No known active allergies Medications aspirin [...] artery disease of n ative artery of [place] heart with stable angina pectoris 06/03/2021 Assessment & Plan (06/03/2021 1:24 PM ASSEMBLER CHASSIS): Patient has history of stent placement in 2018; continues to follow with Cardiology Patient on weight limited 30 lb lifting weight due to angina with increased exertion Continue ASA 81 mg, atorvastatin 80 mg, Zetia 10 mg; lisinopril 10 mg metoprolol 12.5 mg b.i.d. Sleep apnea 03/25/2020 Assessment & Plan (06/03/2021 1:26 PM ASSEMBLER CHASSIS): Stable, improving control Patient reports that he recently received safe have, is beginning to get use to use Polyarthralgia 12/23/2017 Chronic right-sided low back pain without sciati ca 12/23/2017 Family history of myocardial infarction at age l ess than 60 06/09/2017 Smoker 06/09/2017 Assessment & Plan (06/03/2021 1:26 PM ASSEMBLER CHASSIS): Patient has quit smoking, no longer using tobacco products Encouraged continue cessation for generalized health BURGESS (dyspnea on exertion) Assessment & Plan (06/03/2021 1:24 PM ASSEMBLER CHASSIS): Patient reports he continues to have dyspnea on exertion, has exertion on climbing single flight of stairs or walking more than a few 100 yd at a time Patient has known coronary artery disease as well as COPD, unclear of specific source of dyspnea Continue to monitor and optimize treatments for COPD as well as coronary artery disease Chronic obstructive pulmonary disease ([facility]) Assessment & Plan (06/03/2021 1:25 PM ASSEMBLER CHASSIS): Patient continues to have dyspnea on exertion, [...] SARS-CoV-2 Monovalent Vaccination (12+ Yrs) PURPLE 10/11/2020,09/20/2020 Social History Tobacco Use Types Packs/Day Years [...] on file Legal Sex Male 3:58 PM ASSEMBLER CHASSIS Gender Identity Not on file Sexual Orientation Not on file Last Filed Vital Signs Vital Sign Reading Time Taken Comments Blood Pressure 134/84 05/03/2024 9:17 AM ASSEMBLER CHASSIS Pulse 82 05/03/2024 9:17 AM ASSEMBLER CHASSIS Temperature 37 C (98.6 F) 06/03/2021 11:05 AM ASSEMBLER CHASSIS Respiratory Rate 18 04/25/2021 12:05 PM CDT Oxygen Saturation 98% 05/03/2024 9:17 AM ASSEMBLER CHASSIS Inhaled Oxygen Concentration - - Weight 111.1 kg (245 lb) 05/03/2024 9:17 AM ASSEMBLER CHASSIS Height 185.4 cm (6' 1) 05/03/2024 9:17 AM ASSEMBLER CHASSIS Body Mass Index 32.32 05/03/2024 9:17 AM ASSEMBLER CHASSIS Plan of Treatment Not on file Insurance [facility] [employer]ETNA [facility] WORKERS COMPENSATION GENERIC Care Teams Scale Agent Relationship Specialty Start Date End Date Giovanny Singh MD [address] [place] [address] PCP - General Family Medicine 06/03/21
--- OUTSIDE RECORDS SUMMARY | 2024-11-30 15:08 | XMS_ITS | Continuity of Care Document ---
Author Organization [facility] Address [address] [place] [address] Phone Care Team Providers Care Health Science Writer Name Role Phone Devante Bautista MD Unavailable [...] Date Provider Providers Copied on Encounter [facility], [address] [place] [address], [id number], [place] [phone] [facility] No Information 3 6 Lily [place]. [address] [place] [address], [address], [id number] , [place]. tel: [phone] Independent Medical Examination SUKHJINDER [facility], [address] [place] [address], [id number], [place] [phone] [facility] [employer] [employer] [facility] Lesion of ulnar nerve, left upper limb 7201 6 Lily Low. [address] [place] [address], [place] [address], [place], [place], [id number] , [place]. tel: [phone] Office/outpat ient visit,est, [facility], [address], [id number], [place] [phone] [facility] [employer] [facility] No Information [address] [facility], [address], [id number] , [place]. tel: [phone] Office/outpat ient visit,est, [facility], [address] [place] [address], [id number], [place] tel:[phone] [facility] [employer] [facility] No Information 8 Delano Hernandez. [address] [place] [address], [id number] , [place]. tel: [phone] Office consultation, [facility], [address] [place] [address], [id number], [phone] [facility] [employer] [facility] No Information [address] [facility], [address], [id number] , [place]. tel: [phone] Family History Family Member Type Diagnosis Age [...]
== END 2024-11-30 14:46 | disposition home or self-care (01) ==
PROVIDERS: Emergency Provider Nurse Practitioner Family; PCP Hospitalist
DX: R51.9 Headache, unspecified (principal); Z87.891 Personal history of nicotine dependence; I10 Essential (primary) hypertension; I25.10 Atherosclerotic heart disease of native coronary artery without angina pectoris; E78.5 Hyperlipidemia, unspecified; M19.90 Unspecified osteoarthritis, unspecified site; I25.2 Old myocardial infarction; Z95.5 Presence of coronary angioplasty implant and graft
CPT/HCPCS: 99213; G0463